=== PATIENT | female | born 1985 | race Caucasian/White ===

== ENCOUNTER 2022-10-28 07:16 | Emergency (ER) | payer OTHER, SELFPAY ==
[2022-10-28 07:21] VITALS: BP 153/94; PULSE 95; RESP 18; TEMP 36.4; O2SAT 99; BMI 39.3
--- NOTE | 2022-10-28 07:42 | CRLHL7_ITS ---
For Patients: As a result of the Cures Act, medical imaging exams and procedure reports are released immediately into your electronic medical record. You may view this report before your referring provider. If you have questions, please contact your health care provider. Indication: Injury Technique: A total of three views of the left knee were acquired. Comparison: None Findings: Bones: Alignment is normal. No fractures or bone lesions. Joint spaces: Unremarkable. Soft tissues: Unremarkable. Impression: Normal plain film examination of the left knee. Dictated by Chucky Glaser MD @ 10/28/2022 9:05:41 AM (Electronically Signed)
--- NOTE | 2022-10-28 07:43 | ED_ITS ---
HPI - General Adult General Time Seen by Provider: 07:43 Date Seen: 10/28/22 Chief complaint: Extremity Pain/Injury, Lower Stated complaint: knees injuries Time Seen by Provider: 10/28/22 07:38 Source: patient Mode of arrival: ambulatory Limitations: no limitations History of Present Illness HPI narrative: Patient is a 37-year-old female felt a twist her left knee has pain on the medial aspect of it. No swelling, she has been able to bear weight. She has no prior knee injury. The patient reports that her right knee popped because she put some much pressure on her left knee and then subsequent her right knee when she injured her left knee. No marked swelling, patient works at [employer]. Has a fairly physical job. No other specific complaints no head neck or back pain or injury. Related Data Previous Rx's Medication Instructions Recorded norgestimate-ethinyl estradiol See Rx Instructions .Route 08/29/22 0.18 mg/0.215mg/0.25mg-35 .COMPLEX #84 tabs mcg(28)tablet (Tri-Sprintec (28)) Allergies Allergy/AdvReac Type Severity Reaction Status Date / Time No Known Drug Allergies Allergy Verified 10/28/22 07:25 Review of Systems Status of ROS: Reports: 6 or more systems reviewed and unremarkable except as noted in History and below PFSH PFS Social History Smoking Status: Never smoker Do you use any of these nicotine containing products: None How often do you have a drink containing alcohol: never AUDIT-C Alcohol total score: 0 Non-prescribed substance use: denies use Exam Narrative: Exam Narrative: Objective left knee shows fairly full range of motion pain with valgus stress consistent with MCL strain, some mild medial joint line tenderness but a little bit of tenderness above and below the joint line and medially as well, no effus ion, negative anterior drawer, nex distal CMS intact. Will get an x-ray of the left knee Const: Vital Signs, click to edit/add: Vital Signs - 24 hr 10/28/22 07:21 Temperature 97.5 F L Pulse Rate [Right Pulse Oximeter] 95 Respiratory Rate 18 Blood Pressure [Ri ght Upper Arm] 153/94 H Pulse Oximetry 99 Oxygen Delivery Me thod Room Air Course Vital Signs Vital signs: Initial Vital Signs Temperature 97.5 F L 10/28/22 07:21 Temperature Source Temporal Artery Scan 10/28/22 07:21 Pulse Rate 95 10/28/22 07:21 Respiratory Rate 18 10/28/22 07:21 Blood Pressure 153/94 H 10/28/22 07:21 Blood Pressure Mean 113 10/28/22 07:21 Blood Pressure Position Sitting 10/28/22 07:21 Pulse Oximetry 99 10/28/22 07:21 Oxygen Delivery Method 10/28/22 07:21 Vital Signs Temperature 97.5 F L 10/28/22 07:21 Pulse Rate 95 10/28/22 07:21 Respiratory Rate 18 10/28/22 07:21 Blood Pressure 153/94 H 10/28/22 07:21 Pulse Oximetry 99 10/28/22 07:21 Oxygen Delivery Method 10/28/22 07:21 Temperature 97.5 F L 10/28/22 07:21 Pulse Rate 95 10/28/22 07:21 Respiratory Rate 18 10/28/22 07:21 Blood Pressure 153/94 H 10/28/22 07:21 Pulse Oximetry 99 10/28/22 07:21 Oxygen Delivery Method 10/28/22 07:21 Medical Decision Making MDM Narrative Medical decision making narrative: Left knee x-ray pending. If this is negative I think a knee immobilizer, off work, ice, Advil for the next few days would be appropriate elevation, and limited weight-bearing, and follow-up with primary care in next 2-3 days. Addendum: The patient's chest knee x-ray is negative, and knee immobilizer, crutches, off work for 2 days, recheck with primary care Advil as needed ice, return to ED as needed Discharge Plan Discharge Clinical Impression: Strain of left knee Patient Disposition: Home, Self-Care Condition: Stable Additional Instructions: Ice to the knee 5-10 minutes 3 to 5 times a day, off work for 2 days, recheck with primary care in 2 days, crutches, Advil 3 tablets 3 times a day for the next 3-5 days, return to ED sooner problems concerns Activity Level: Light activity Activity Detail: Off work x2 days Discharge Diet: Regular Prescriptions: No Action norgestimate-ethinyl estradiol [Tri-Sprintec (28)] 0.18/0.215/0.25 mg-35 mcg (28) tablet See Rx Instructions .ROUTE .COMPLEX Qty: 84 3RF Dose Instruction: TAKE ONE TABLET BY MOUTH ONE TIME DAILY Rx Instructions: TAKE ONE TABLET BY MOUTH ONE TIME DAILY Follow Up/Referrals: Donald Smith MD [Primary Care Provider] - Stand Alone Forms: [employer] Info Instructions
== END 2022-10-28 09:44 | disposition home or self-care (01) ==
LOC: ED 09:10
PROVIDERS: Emergency Provider Family Medicine; PCP Family Medicine
DX: S86.912A Strain of unspecified muscle(s) and tendon(s) at lower leg level, left leg, initial encounter (principal); X50.1XXA Overexertion from prolonged static or awkward postures, initial encounter
CPT/HCPCS: 73562; 99283

== ENCOUNTER 2022-12-02 07:19 | Outpatient (CLI) | payer BC, SELFPAY ==
--- NOTE | 2022-12-02 07:15 | CRLHL7_ITS ---
For Patients: As a result of the Century Cures Act, medical imaging exams and procedure reports are released immediately into your electronic medical record. You may view this report before your referring provider. If you have questions, please contact your health care provider. HISTORY: Left knee pain. Locking. TECHNIQUE: Noncontrast MRI of the left knee. COMPARISON: Radiographs 10/28/2022. FINDINGS: Medial compartment: Medial meniscus: There is a displaced bucket-handle tear of the medial meniscus with the bucket-handle portion of the meniscus displaced laterally to the intercondylar notch. The displaced bucket-handle fragment is noted on coronal STIR image #14 of series 8 for example and also apparent on axial T2 fat-sat #17 of series 4. Articular cartilage: The articular surfaces are smooth without focal articular cartilage defect. - Lateral compartment: Lateral meniscus: The anterior horn and body of the lateral meniscus are intact. The posterior horn of the lateral meniscus more medially appears relatively attenuated which raise the possibility of remote subtle tear. Articular cartilage: There is heterogeneity of the lateral tibial plateau articular cartilage posteriorly. Small areas of subchondral bone marrow edema are noted suggesting that up to grade 4 cartilage fissuring is present. There is also heterogeneity of the posterior central lateral femoral condyle articular cartilage with areas softening or fissuring likely present. - Patellofemoral compartment: The articular surfaces are smooth without focal articular cartilage defect. - Ligaments: The anterior cruciate ligament appears chronically torn. The posterior cruciate ligament is intact. The medial collateral ligament is intact. Lateral collateral complex is intact. - Extensor mechanism: The distal quadriceps tendon and patellar tendon are intact. Medial and lateral patellar restraints are intact. No patellar subluxation or reilly. - Joint space: Quantity of joint fluid is within normal limits. - Bones and soft tissues: There is no acute fracture or avascular necrosis. No popliteal cyst. Popliteus tendon is intact. No posterolateral corner capsular defect appreciated. IMPRESSION: 1. Chronic ACL tear. 2. Displaced bucket-handle tear of the medial meniscus with the bucket-handle portion of the meniscus displaced to the intercondylar notch. 3. Lateral compartment chondromalacia posteriorly (potentially reflecting sequelae of prior chondral injury). 4. Question subtle changes related to a remote tear of the posterior horn of the lateral meniscus closer to the root as that portion of the meniscus appears mildly attenuated. Dictated by Matt Craig MD @ 12/02/2022 3:19:47 PM (Electronically Signed)
--- NOTE | 2022-12-02 08:00 | CRLHL7_ITS ---
For Patients: As a result of the 21st Century Cures Act, medical imaging exams and procedure reports are released immediately into your electronic medical record. You may view this report before your referring provider. If you have questions, please contact your health care provider. HISTORY: Right knee pain and locking. TECHNIQUE: Noncontrast MRI of the right knee. COMPARISON: No prior. FINDINGS: Medial compartment: Medial meniscus: There are sequelae of prior tearing of the posterior horn, body and anterior horn of the medial meniscus with meniscal attenuation. There is a 1 cm meniscal flap associated with the anterior horn of the meniscus as noted on coronal STIR image #12 series 8. That meniscal flap is also apparent on sagittal PD fat-sat image #20 of series 6. Given the extent of meniscal attenuation, this may have previously reflected a displaced bucket-handle tear of the meniscus though there is no bucket-handle fragment contiguous with the anterior and posterior horns of the meniscus currently. Articular cartilage: There is high-grade cartilage wear within the medial compartment. Subchondral bone marrow edema involving the medial tibial plateau medially likely indicates presence of overlying grade 4 full-thickness cartilage abnormality. There is grade 3 chondromalacia of the medial femoral condyle. Mild osteophyte formation is present. - Lateral compartment: Lateral meniscus: Intact. Articular cartilage: Maintained. - Patellofemoral compartment: The articular cartilage is maintained. - Ligaments: The anterior cruciate ligament appears chronically torn. The posterior cruciate ligament is intact. The medial collateral ligament is intact. Lateral collateral complex intact. - Extensor mechanism: The distal quadriceps tendon and patellar tendon are intact. Medial and lateral patellar restraints are intact. No patellar subluxation or reilly. - Joint space: No effusion. - Bones and soft tissues: There is no acute fracture. As above, there is bone marrow edema within the medial tibial plateau in setting of overlying chondromalacia. No significant popliteal cyst. Popliteus tendon is intact. No posterolateral corner capsular defect. IMPRESSION: 1. Chronic ACL tear, right knee. 2. Attenuation of the posterior horn, body and anterior horn of the medial meniscus reflecting sequelae of meniscal tearing. An approximately 1 cm meniscal flap is associated with the anterior horn of the meniscus. Given this appearance, the patient may have previously sustained a displaced bucket-handle tear of the meniscus though no bucket-handle fragment is currently contiguous with the anterior and posterior horns of the meniscus. 3. High-grade medial compartment chondromalacia with subchondral bone marrow edema involving the medial tibial plateau (grade 3/4). Dictated by Matt Craig MD @ 12/02/2022 3:35:42 PM (Electronically Signed)
== END 2022-12-02 07:20 | disposition home or self-care (01) ==
LOC: MRI 07:20
PROVIDERS: PCP Family Medicine; Visit Provider Family Medicine
DX: M25.562 Pain in left knee (principal); M25.561 Pain in right knee; S83.512A Sprain of anterior cruciate ligament of left knee, initial encounter; S83.242A Other tear of medial meniscus, current injury, left knee, initial encounter; M94.262 Chondromalacia, left knee; S83.511A Sprain of anterior cruciate ligament of right knee, initial encounter; S83.241A Other tear of medial meniscus, current injury, right knee, initial encounter; M94.261 Chondromalacia, right knee
CPT/HCPCS: 73721

== ENCOUNTER 2023-02-17 14:00 | Outpatient (RCR) | payer BC, SELFPAY | END 2023-05-29 23:59 | disposition home or self-care (01) | PROVIDERS: PCP Family Medicine; Visit Provider Physician Assistant Surgical | DX: S83.511A Sprain of anterior cruciate ligament of right knee, initial encounter (principal); S83.512A Sprain of anterior cruciate ligament of left knee, initial encounter; M25.561 Pain in right knee; Z51.89 Encounter for other specified aftercare | CPT/HCPCS: 97110; 97161; 97530 ==

== ENCOUNTER 2023-03-10 14:12 | Outpatient (CLI) | payer BC, SELFPAY | END 2023-03-10 14:13 | disposition home or self-care (01) | LOC: LONREF 14:13 | PROVIDERS: PCP Family Medicine; Visit Provider Family Medicine | DX: Z01.818 Encounter for other preprocedural examination (principal) | CPT/HCPCS: 80048 ==

== ENCOUNTER 2023-07-18 13:44 | Outpatient (CLI) | payer BC, SELFPAY | END 2023-07-18 13:45 | disposition home or self-care (01) | PROVIDERS: PCP Family Medicine; Visit Provider Family Medicine | DX: Z00.00 Encounter for general adult medical examination without abnormal findings (principal); I10 Essential (primary) hypertension; E66.9 Obesity, unspecified; Z13.6 Encounter for screening for cardiovascular disorders; R10.11 Right upper quadrant pain | CPT/HCPCS: 80061; 80076; 84443 ==

== ENCOUNTER 2023-07-25 14:35 | Outpatient (CLI) | payer BC, SELFPAY ==
--- NOTE | 2023-07-25 15:00 | CRLHL7_ITS ---
For Patients: As a result of the Cures Act, medical imaging exams and procedure reports are released immediately into your electronic medical record. You may view this report before your referring provider. If you have questions, please contact your health care provider. INDICATION: Right upper quadrant pain. COMPARISON: None available. TECHNIQUE: Ultrasound examination of the right upper quadrant was performed. FINDINGS: There are several echogenic, nonshadowing, nonmobile foci located along the gallbladder wall consistent with multiple small polyps. There is no sign of cholelithiasis or sludge. The gallbladder wall is not thickened and there is no pericholecystic fluid. A sonographic Jaquez sign is not present, with no pain over the gallbladder during ultrasound examination. The common bile duct is normal in caliber at 5 mm. The pancreatic head and body were examined, and these are normal in appearance. The abdominal aorta and visualized portions of the inferior vena cava are normal in appearance. The liver shows no sign of mass or contour abnormality, and there is no sign of ascites. The right kidney is unremarkable. IMPRESSION: Small gallbladder polyps. No sign of cholelithiasis or acute cholecystitis. No sign of biliary ductal dilatation. Dictated by Ramírez Lorenz MD @ 07/26/2023 8:50:50 AM (Electronically Signed)
== END 2023-07-25 14:36 | disposition home or self-care (01) ==
LOC: US 14:35
PROVIDERS: PCP Family Medicine; Visit Provider Family Medicine
DX: R10.11 Right upper quadrant pain (principal); K82.4 Cholesterolosis of gallbladder
CPT/HCPCS: 76705

== ENCOUNTER 2023-08-05 08:28 | Outpatient (CLI) | payer BC, SELFPAY ==
--- NOTE | 2023-08-05 09:00 | CRLHL7_ITS ---
For Patients: As a result of the Century Cures Act, medical imaging exams and procedure reports are released immediately into your electronic medical record. You may view this report before your referring provider. If you have questions, please contact your health care provider. INDICATION: Right upper quadrant pain TECHNIQUE: 5.4 mCi [id number] was injected intravenously. Images of the liver, gallbladder and abdomen were obtained for 50 minutes. 2.05 mcg Kinevac IV was then administered and imaging continued for an additional 23 minutes. COMPARISON: Ultrasound 07/25/2023 FINDINGS: There is good uptake of activity by the hepatocytes. There is visualization of the biliary tree, gallbladder and small bowel. In response to CCK administration, there is a normal gallbladder ejection fraction of 84 percent. IMPRESSION: 1. Normal study. There is no evidence of acute or chronic cholecystitis. 2. Normal gallbladder ejection fraction of 84 percent. Dictated by Aldo Auguste MD @ 08/05/2023 12:53:12 PM (Electronically Signed)
== END 2023-08-05 08:29 | disposition home or self-care (01) ==
LOC: NM 08:29
PROVIDERS: PCP Family Medicine; Visit Provider Family Medicine
DX: R10.11 Right upper quadrant pain (principal)
CPT/HCPCS: 78227; A9537; J2805

== ENCOUNTER 2023-08-12 09:45 | Outpatient (RCR) | payer BC, SELFPAY | END 2023-08-12 09:57 | disposition home or self-care (01) | PROVIDERS: PCP Family Medicine; Visit Provider Orthopaedic Surgery Sports Medicine | DX: S83.512D Sprain of anterior cruciate ligament of left knee, subsequent encounter (principal); Z51.89 Encounter for other specified aftercare | CPT/HCPCS: 97110; 97112; 97116; 97140; 97161; 97530; J2250; J3010 ==

== ENCOUNTER 2023-11-17 16:24 | Emergency (ER) | payer BC, SELFPAY ==
[2023-11-17 16:52] VITALS: BP 150/99; PULSE 107; RESP 26; TEMP 36.6; O2SAT 98; BMI 36.9
--- NOTE | 2023-11-17 17:01 | CRLHL7_ITS ---
For Patients: As a result of the Century Cures Act, medical imaging exams and procedure reports are released immediately into your electronic medical record. You may view this report before your referring provider. If you have questions, please contact your health care provider. INDICATION: Right upper quadrant abdominal pain. COMPARISON: 07/25/2023. FINDINGS: Right upper quadrant abdominal ultrasound was performed. The liver is normal echotexture without any focal lesions. There is sludge and stones in the gallbladder. The gallbladder wall is thickened measuring 0.4 cm. The common bile duct is prominent measuring 0.7 cm. There is a positive sonographic Jaquez`s sign. The visualized portion of the pancreas is unremarkable. The right kidney measures 11.7 x 4.6 x 5.6 cm with a cortical thickness of 1.5 cm and is unremarkable. The inferior vena cava is unremarkable. IMPRESSION: Sludge and stones in the gallbladder with a thickened gallbladder wall consistent with a cholecystitis. Borderline dilated common bile duct measuring 0.7 cm. Dictated by Hussain Renae MD @ 11/17/2023 7:53:35 PM (Electronically Signed)
[2023-11-17 17:12] LABS: Lactate* 0.9 mmol/L (0.5-1.9)
[2023-11-17] MEDS: MORPHINE 2 MG/ML inj 4 MG IVP (17:12)
[2023-11-17] MEDS: ONDANSETRON 2 MG/ML inj 4 MG IVP (17:14)
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
--- OUTSIDE RECORDS SUMMARY | 2023-11-17 17:14 | XMS_ITS | Clinical Summary ---
Author Name Unknown Organization [employer] [facility] Address [place], [place] [address] Care Team Providers Care Mutual Fund Analyst Name Role Phone Pcp, No Primary Care Provider Unavailabl e Allergies No known active allergies Medications Medication Sig Dispensed Refills Start Date End Date Status TRI-PREVIFEM 0.18/0.215/0.25 mg-35 mcg (28) tablet 2 03/21/2016 Active durable medical equipment (DME)Indications:Plan tar fasciitis [id number] Plantar Fasciitis Night Splint, M 1 Each 0 04/24/2021 Active Family History Medical History Relation Name Comments Hypertension Father Hypertension Mother Relation Name Status Comments Father Alive Mother Alive Social History Tobacco Use Types Packs/Day Years Used Date Smoking Tobacco: Every Day Smokeless Tobacco: Never Tobacco Cessation:Ready to Q uit: No; Counseling Given: Yes Comments:pack 3-4 days Alcohol Use Standard Drinks/Week Comments No 0 (1 standard drink = 0.6 oz pur e alcohol) Sex and Gender Information Value Date Recorded Sex Assigned at Not on file Gender Identity Not on file Sexual Orientation Not on file Obstetrics History Last Filed Vital Signs Vital Sign Reading Time Taken Comments Blood Pressure 100/60 05/07/2019 8:28 AM CDT Pulse 87 08/16/2021 2:56 PM CDT Temperature 36.7 ??C (98 ??F) 07/14/2018 2:36 AM CDT Respiratory Rate 18 07/14/2018 2:36 AM CDT Oxygen Saturation 97% 08/16/2021 2:56 PM CDT Inhaled Oxygen Concentration - - Weight 109.8 kg (242 lb) 08/16/2021 2:56 PM CDT Height 162.6 cm (5' 4) 05/07/2019 8:28 AM CDT Body Mass Index 41.54 05/07/2019 8:28 AM CDT Plan of Treatment Health Maintenance Due Date Last Done Comments COVID-19 vaccine series (#1) 1985 Tdap 1996 HIV for age 15-65 2000 Hepatitis C screening for age 18-79 2003 Tetanus booster 2005 Depression screening for age 12+ 05/06/2018 05/06/2017, 2016 BMI (ht and wt on same day) for age 18+ 05/07/2020 05/07/2019, 04/21/2018, 05/06/2017, Additional history exists Pap test for age 21-65 11/23/2022 11/23/2019, 2019 Influenza for age 9-49 07/11/2023 Pneumococcal series for age 6-64 Aged Out No longer eligible based on patient's age to complete this topic Care Teams Mutual Fund Analyst Relationship Specialty Start Date End Date Pcp, No . PCP - General 05/16/14
--- OUTSIDE RECORDS SUMMARY | 2023-11-17 17:14 | XMS_ITS | Clinical Summary ---
Author Name Unknown Organization [facility] Address [address] [place] [address] Care Team Providers Care Greenskeeper Supervisor Name Role Phone Elsewhere, Pcp Primary Care Provider Unavailabl e Source Comments Patient records contain information from all sites at [facility]. For routine questions regarding patient records, call [phone] during business hours, M-F 8:00 AM - 5:00 PM Central Time. Record requests for emergency care only can be directed to [phone] at any time.[facility] Allergies No known active allergies Medications No known medications Active Problems Problem Noted Date Diagnosed Date Management Contraception Prescription 08/07/2018 Herpes Genitalis 08/07/2018 Immunizations Name Administration Dates Next Due Influenza, Seasonal, Injectable 09/18/2010 Influenza, Unspecified 08/24/2014 MMR 02/14/1998 Td (Adult), adsorbed 09/22/2007,02/14/1998 Tdap 03/02/2015 Social History Tobacco Use Types Packs/Day Years [...] on file Sexual Orientation Not on file Last Filed Vital Signs Vital Sign Reading [...] Mass Index 39.01 02/04/2023 7:17 AM CDT Plan of Treatment Health Maintenance Due Date Last Done Comments HIV Screening 1985 Hepatitis B Vaccines (1 of 3 - 3-dose series) 1985 Hepatitis C Screening 1985 Lipid (Cholesterol) Screening 1985 Tobacco Cessation counseling 1985 COVID-19 Vaccine (#1) 1985 Pneumococcal vaccine (0-64 years) (1 of 2 - PCV) 1991 Depression Screening (Annual PHQ-2) 11/10/2022 Cervical Cancer Screening 11/23/20222019, 12/01/2014 Influenza Vaccine (#1) 2023 4, 09/18/2010 DTaP,Tdap,and Td Vaccines (3 - Td or Tdap) 03/02/2025 03/02/2015, 09/22/2007, 02/14/1998 HPV Vaccines Aged Out No longer eligi ble based on patient's age to complete this topic Care Teams Greenskeeper Supervisor Relationship Specialty Start Date End Date Elsewhere, Pcp PCP - General 02/08/22
--- OUTSIDE RECORDS SUMMARY | 2023-11-17 17:14 | XMS_ITS | Referral Summary ---
Author Name Unknown Organization [facility] Address [address] [place] [address] Care Team Providers Care Driver Lifter Of Sanitation Truck Name Role Phone Elsewhere, Pcp Primary Care Provider Unavailabl e Source Comments Patient records contain information from all sites at [facility]. For routine questions regarding patient records, call [phone] during business hours, M-F 8:00 AM - 5:00 PM Central Time. Record requests for emergency care only can be directed to [phone] at any time.[facility] Allergies No known active allergies Medications No [...] 02/04/2023 7:17 AM CDT Plan of Treatment Not on file Care Teams Driver Lifter Of Sanitation Truck Relationship Specialty Start Date End Date Elsewhere, Pcp PCP - General 02/08/22
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
--- OUTSIDE RECORDS SUMMARY | 2023-11-17 17:14 | XMS_ITS ---
Author Name Unknown Organization [facility] Address [address] [place] [address] Care Team Providers Care Steel Plate Caulker Name Role Phone Unavailable Unavailable Unavailable Surgery Details Not on file Complications Check Surgery Details section. Procedure Estimated Blood Loss Check Surgery Details section. Procedure Findings Check Surgery Details section. Procedure Specimens Taken Check Surgery Details section.
[2023-11-17 17:15] LABS: Basophils Percent Auto 0.2 % (0.0-3.0); Eosinophils Percent Auto 1.7 % (0.0-7.0); Hematocrit 45.1 % (33.0-51.0); Immature Granulocytes Pct Auto 0.1 %; Lymphocytes Percent Auto 28.6 % (20-44); Mean Corpuscular HGB Conc 33 gm/dL (32-36); Mean Corpuscular Hemoglobin 31 pg (26-34); Mean Corpuscular Volume 95 fL (80-100); Monocytes Percent Auto 5.2 % (0.0-11.0); Neutrophils Percent Auto 64.2 % (42.0-72.0); Platelet Count* 364 K/uL (140-440); RDW Coefficient of Variation % 12.5 % (11.5-15.5); Red Blood Count 4.77 m/uL (4.00-5.20); White Blood Count* 12.69 K/uL (4.50-11.00)
[2023-11-17] MEDS: 0.9 % SODIUM CHLORIDE 1000 ml 1,000 ML IV (17:15)
[2023-11-17 17:21] LABS: Slide Review Reflex No
[2023-11-17 17:32] LABS: Albumin* 4.3 g/dL (3.3-5.0); Chloride* 109 mmol/L (96-114); Sodium* 139 mmol/L (135-149)
--- NOTE | 2023-11-17 17:33 | ED.GENADULT ---
HPI - General Adult General Chief complaint: Abdominal Pain Stated complaint: gallbladder pain, cant really walk Time Seen by Provider: 11/17/23 16:57 Source: patient Mode of arrival: ambulatory Limitations: no limitations History of Present Illness HPI narrative: 38-year-old female presenting today with right upper quadrant abdominal pain. She states that it started about 2 hours ago. She states that it is a 8/10. For lunch patient states that she had a very ?crappy lunch?, she did not want to tell me what she actually ate. Patient tells me that she has had gallbladder attacks in the past and this feels more severe than that. She denies a history of gallstones. States that her gallbladder was malfunctioning in the past. She denies fevers or chills. She feels nauseated but has not vomited. She denies diarrhea or urinary symptoms. She had an attack last night also, but it resolved and was not as severe. Breast milk is significant for hypertension and anxiety. Patient takes lisinopril. Past intra-abdominal surgical history significant for appendectomy. Related Data Previous Rx's Medication Instructions Recorded lisinopril 20 mg tablet 20 mg PO QDAY #30 tabs 07/18/23 Allergies Allergy/AdvReac Type Severity Reaction Status Date / Time No Known Drug Allergies Allergy Verified 08/29/23 13:33 Review of Systems Status of ROS: Reports: 10 or more systems reviewed and unremarkable except as noted in History and below [facility] Medical History History of paroxysmal supraventricular tachycardia ?Z86.79 - Personal history of other diseases of the circulatory system (ICD-10) Surgical History H/O arthroscopy of left knee (03/24/23) ?Z98.890 - Other specified postprocedural states (ICD-10) History of appendectomy ?Z90.49 - Acquired absence of other specified parts of digestive tract (ICD-10) Family History Other ASCVD (arteriosclerotic cardiovascular disease) Diabetes Social History What is your current living situation?: I presently have a place to live Problems where you live: no known problems and declined to answer In the past 12 months, utilities in danger of being shut off: no In past 12 months, lack of transportation kept you from medical appts, meetings, work, or getting things needed for daily living: no In the past 12 mos, have been you worried that your food would run out before you had money to buy more?: never true In the past 12 mos, the food you bought just didn't last and you didn't have money to buy more?: never true Smoking Status: Current every day smoker Do you use any of these nicotine containing products: None How often do you have a drink containing alcohol: 2-4 times a month How many standard drinks containing alcohol do you have on a typical day: 1 or 2 How often do you have six or more drinks on one occasion: Never AUDIT-C Alcohol total score: 2 Non-prescribed substance use: denies use How often does anyone, including family, friends and others, physically hurt you: never How often does anyone, including family, friends and others, insult or talk down to you: sometimes How often does anyone, including family, friends and others, threaten you with harm: never How often does anyone, including family, friends and others, scream or curse at you: sometimes Little interest or pleasure in doing things: more than half the days Feeling down, depressed, or hopeless: not at all Are you using contraception or practicing any form of control: No Exam Narrative: Exam Narrative: Overweight, well-developed patient, appears very uncomfortable. Alert and oriented. Answers questions appropriately. Mood and affect are appropriate. Thoughts are goal oriented and rational. No tangential or magical thinking noted. Patient speaks in full sentences without needing to catch her breath. HEENT: Normocephalic atraumatic. Pupils are equally round reactive to light. Extraocular muscles are intact. Conjunctivae are moist without any icterus noted. Moist mucous membranes. Posterior pharynx is normal. Neck is soft without any lymphadenopathy or thyromegaly. No masses are appreciated. Cardiovascular: Heart is regular rate and rhythm S1 and S2 are present without any murmurs. Lungs: Clear to auscultation bilaterally no wheezes rhonchi or rales are appreciated. Patient takes deep breaths without any discomfort. Abdomen: Soft and nondistended with hypoactive bowel sounds. She does have right upper quadrant tenderness, positive Jaquez sign. Extremities: Bilateral lower extremities are without edema. Normal DP and PT pulses. Skin: Well perfused without any obvious rashes. Const: Vital Signs, click to edit/add: Vital Signs - 24 hr 11/17/23 16:52 11/17/23 18:51 Temperature 97.8 F Pulse Rate 62 Pulse Rate [Pulse Oximeter] 107 H Respiratory Rate 26 H 14 Blood Pressure [Ri ght Upper Arm] 150/99 H Pulse Oximetry 98 100 Oxygen Delivery Me thod Room Air Course Course ED Course: IV is established and patient started on Zofran, fluids and morphine. Morphine help the pain temporarily the pain did come back. She was given hydrocodone, her pain did resolve. Lab work was unremarkable. Right upper quadrant ultrasound showing stones and sludge in the gallbladder. Vital Signs Vital signs: Initial Vital Signs Temperature 97.8 F 11/17/23 16:52 Temperature Source Temporal Artery Scan 11/17/23 16:52 Pulse Rate 107 H 11/17/23 16:52 Pulse Rhythm Regular 11/17/23 16:52 Respiratory Rate 26 H 11/17/23 16:52 Blood Pressure 150/99 H 11/17/23 16:52 Blood Pressure Mean 116 H 11/17/23 16:52 Blood Pressure Position Sitting 11/17/23 16:52 Pulse Oximetry 98 11/17/23 16:52 Oxygen Delivery Method Room Air 11/17/23 16:52 Vital Signs Temperature 97.8 F 11/17/23 16:52 Pulse Rate 107 H 11/17/23 16:52 Respiratory Rate 26 H 11/17/23 16:52 Blood Pressure 150/99 H 11/17/23 16:52 Pulse Oximetry 98 11/17/23 16:52 Oxygen Delivery Method Room Air 11/17/23 16:52 Temperature 97.8 F 11/17/23 16:52 Pulse Rate 62 11/17/23 18:51 Respiratory Rate 14 11/17/23 18:51 Blood Pressure 150/99 H 11/17/23 16:52 Pulse Oximetry 100 11/17/23 18:51 Oxygen Delivery Method Room Air 11/17/23 16:52 Medications Administered Medications: Generic Name Dose Route Start Last Admin Trade Name Freq PRN Reason Stop Dose Admin Hydrocodone Bitart/Acetaminophen 2 tab 11/17/23 18:19 11/17/23 18:25 Hydrocodone-Acetamin 5-325 Mg 1 Tab PO 11/17/23 18:20 2 tab ONCE ONE Administration Discontinued Medications Generic Name Dose Route Start Last Admin Trade Name Lyn PRN Reason Stop Dose Admin Sodium Chloride 1,000 mls @ 1,000 mls/hr 11/17/23 17:15 11/17/23 19:02 0.9 % Sodium Chloride 1000 Ml IV 11/17/23 18:14 Infused .Q1H LILLIE Infusion Morphine Sulfate 4 mg 11/17/23 17:01 11/17/23 17:12 Morphine 2 Mg/Ml Inj IVP 11/17/23 17:02 4 mg ONCE ONE Administration Ondansetron HCl 4 mg 11/17/23 17:01 11/17/23 17:14 Ondansetron 2 Mg/Ml Inj IVP 11/17/23 17:02 4 mg ONCE ONE Administration Medical Decision Making MDM Narrative Medical decision making narrative: 38-year-old female with cholelithiasis, presenting with pain now resolved. The patient will be discharged home with hydrocodone to take as needed and she will follow up with General surgery for surgical management. Medical Records Medical records reviewed: Yes I reviewed the patient's medical records Lab Data Lab results reviewed: Yes I reviewed the patient's lab results Labs: Lab Results 11/17/23 11/17/23 Range/Units 17:04 19:03 WBC 12.69 H (4.50-11.00) K/uL RBC 4.77 (4.00-5.20) m/uL Hgb 15.0 (12.0-16.0) gm/dL Hct 45.1 (33.0-51.0) % MCV 95 (80-100) fL MCH 31 (26-34) pg MCHC 33 (32-36) gm/dL RDW Coeff of Jaret 12.5 (11.5-15.5) % Plt Count 364 (140-440) K/uL Neut % (Auto) 64.2 (42.0-72.0) % Lymph % (Auto) 28.6 (20-44) % [place] % (Auto) 5.2 (0.0-11.0) % Eos % (Auto) 1.7 (0.0-7.0) % Baso % (Auto) 0.2 (0.0-3.0) % Neut # (Auto) 8.10 H (1.7-7.0) K/uL Lymph # (Auto) 3.60 H (0.90-2.90) K/uL [place] # (Auto) 0.70 (0.00-0.90) K/UL Eos # (Auto) 0.20 (0.00-0.50) K/uL Baso # (Auto) 0.00 (0.00-0.30) K/uL Abs Immat Gran (auto) 0.00 (0.00-0.30) K/uL Imm/Tot Granulo (auto) 0.1 % Sodium 139 (135-149) mmol/L Potassium 4.0 (3.6-5.1) mmol/L Chloride 109 (96-114) mmol/L Carbon Dioxide 22 (20-32) mmol/L Anion Gap 8 (7-15) mEq/L BUN 14 (5-24) mg/dL Creatinine 0.7 (0.5-1.5) mg/dL Estimated Creat Clear 94.10 Estimated GFR 113 ml/min Glucose 104 (60-115) mg/dL Lactate 0.9 (0.5-1.9) mmol/L Calcium 9.0 (8.4-10.6) mg/dL Total Bilirubin 0.3 (0.1-1.5) mg/dL Direct Bilirubin 0.0 (0.0-0.5) mg/dL AST 20 (12-35) U/L ALT 22 (4-35) U/L Alkaline Phosphatase 63 (40-150) U/L C-Reactive Protein 0.5 (0.5-1.0) mg/dL Total Protein 7.2 (6.0-8.3) g/dL Albumin 4.3 (3.3-5.0) g/dL Lipase 127 (23-300) U/L Urine HCG, Qual Negative (Negative) Imaging Data US - abdomen: Attestation: I have reviewed the pertinent imaging results. Radiologist's impression: FINDINGS: Right upper quadrant abdominal ultrasound was performed. The liver is normal echotexture without any focal lesions. There is sludge and stones in the gallbladder. The gallbladder wall is thickened measuring 0.4 cm. The common bile duct is prominent measuring 0.7 cm. There is a positive sonographic Jaquez`s sign. The visualized portion of the pancreas is unremarkable. The right kidney measures 11.7 x 4.6 x 5.6 cm with a cortical thickness of 1.5 cm and is unremarkable. The inferior vena cava is unremarkable. IMPRESSION: Sludge and stones in the gallbladder with a thickened gallbladder wall consistent with a cholecystitis. Borderline dilated common bile duct measuring 0.7 cm. Discharge Plan Discharge Clinical Impression: Cholelithiasis Patient Disposition: Home, Self-Care Condition: Improved Additional Instructions: Use pain medications as needed. You will need to follow-up with general surgeon for surgical removal of the gallbladder. Phone number will be provided to you to call the clinic in the morning. If you develop a fever or vomiting, you should return to the ER. Prescription sent to [facility]. Prescriptions: No Action lisinopril 20 mg tablet 20 mg PO QDAY Qty: 30 5RF Follow Up/Referrals: Donald Smith MD [Primary Care Provider] - Stand Alone Forms: [employer] Info Instructions
[2023-11-17 17:35] LABS: Anion Gap 8 mEq/L (7-15); Carbon Dioxide* 22 mmol/L (20-32); Creatinine* 0.7 mg/dL (0.5-1.5); Estimated Glomerular Filt Rate 113 ml/min
[2023-11-17 17:36] LABS: Alanine Aminotransferase* 22 U/L (4-35); Alkaline Phosphatase* 63 U/L (40-150); Aspartate Amino Transferase* 20 U/L (12-35); Bilirubin Total* 0.3 mg/dL (0.1-1.5); Blood Urea Nitrogen* 14 mg/dL (5-24); Glucose* 104 mg/dL (60-115); Lipase* 127 U/L (23-300); Total Protein* 7.2 g/dL (6.0-8.3)
[2023-11-17 17:39] LABS: C Reactive Protein* 0.5 mg/dL (0.5-1.0)
[2023-11-17] MEDS: HYDROCODONE-ACETAMIN 5-325 MG 1 TAB 2 TAB PO (18:25)
[2023-11-17 18:51] VITALS: PULSE 62; RESP 14; O2SAT 100
[2023-11-17 19:20] LABS: Ur HCG Qualitative* Negative (Negative)
== END 2023-11-17 20:16 | disposition home or self-care (01) ==
PROVIDERS: Emergency Provider Family Medicine; PCP Family Medicine
DX: K80.20 Calculus of gallbladder without cholecystitis without obstruction (principal)
CPT/HCPCS: 36415; 76705; 80048; 80076; 81025; 83605; 83690; 85025; 86140; 96361; 96374; 96375; 99284; A9270; J2270; J2405; J7030

== ENCOUNTER 2023-12-01 08:54 | Day surgery (SDC) | payer BC, SELFPAY ==
[2023-12-01] VITALS (13 sets, daily range): BP systolic 120–149; BP diastolic 62–96; PULSE 60–80; RESP 14–16; TEMP 36.3–37.1; O2SAT 96–99; BMI 37.4
--- OUTSIDE RECORDS SUMMARY | 2023-12-01 08:56 | XMS_ITS ---
Author Name Unknown Organization [facility] Address [address] [place] [address] Care Team Providers Care Stencil Typist Name Role Phone Unavailable Unavailable Unavailable Surgery Details Not on file Complications Check Surgery Details section. Procedure Estimated Blood Loss Check Surgery Details section. Procedure Findings Check Surgery Details section. Procedure Specimens Taken Check Surgery Details section.
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
--- OUTSIDE RECORDS SUMMARY | 2023-12-01 08:56 | XMS_ITS | Clinical Summary ---
Author Name Unknown Organization [facility] Address [place], [place] [address] Care Team Providers Care Asphalt Engineer Name Role Phone Pcp, No Primary Care Provider Unavailabl e Allergies No known active allergies Medications Medication Sig Dispensed Refills Start Date End Date Status TRI-PREVIFEM 0.18/0.215/0.25 mg-35 mcg (28) tablet 2 03/21/2016 Active durable medical equipment (DME)Indications:Plan tar fasciitis [id number] Plantar Fasciitis Night Splint, M 1 Each [...] age to complete this topic Care Teams Asphalt Engineer Relationship Specialty Start Date End Date Pcp, No . PCP - General 05/16/14
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
--- OUTSIDE RECORDS SUMMARY | 2023-12-01 08:56 | XMS_ITS | Clinical Summary ---
Author Name Unknown Organization [facility] Address [address] [place] [address] Care Team Providers Care Senior Asic Design Engineer Name Role Phone Elsewhere, Pcp Primary Care Provider Unavailabl e Source Comments Patient records contain information from all sites at [facility]. For routine questions regarding patient records, call [phone] during business hours, M-F 8:00 AM - 5:00 PM Central Time. Record requests for emergency care only can be directed to [phone] at any time.[facility] Allergies No known active allergies Medications [...] years) (1 of 2 - PCV) 1991 Cervical Cancer Screening 11/23/20222019, 12/01/2014 Influenza Vaccine (#1) 2023 4, 09/18/2010 Depression Screening (Annual PHQ-2) 11/10/2023 DTaP,Tdap,and Td Vaccines (3 - Td or Tdap) 03/02/2025 03/02/2015, 09/22/2007, 02/14/1998 HPV Vaccines Aged Out No longer eligi ble based on patient's age to complete this topic Care Teams Senior Asic Design Engineer Relationship Specialty Start Date End Date Elsewhere, Pcp PCP - General 02/08/22
--- OUTSIDE RECORDS SUMMARY | 2023-12-01 08:56 | XMS_ITS | Referral Summary ---
Author Name Unknown Organization [facility] Address [address] [place] [address] Care Team Providers Care Acoustic Warfare Analyst Name Role Phone Elsewhere, Pcp Primary Care Provider Unavailabl e Source Comments Patient records contain information from all sites at [facility]. For routine questions regarding patient records, call [phone] during business hours, M-F 8:00 AM - 5:00 PM Central Time. Record requests for emergency care only can be directed to [phone] at any time.[facility] Allergies No known active allergies Medications No [...] of Treatment Not on file Care Teams Acoustic Warfare Analyst Relationship Specialty Start Date End Date Elsewhere, Pcp PCP - General 02/08/22
[2023-12-01] MEDS: LACTATED RINGERS 1000 ML 1,000 ML 100 ML IV ×2 (09:00→11:05)
[2023-12-01 09:17] LABS: Ur HCG Qualitative* Negative (Negative)
[2023-12-01] MEDS: SODIUM CHLORIDE 0.9 % (FLUSH) 10 ML SYRINGE IVF (09:20)
--- NOTE | 2023-12-01 09:30 | P.GSOP_ITS ---
Operative Note Date of procedure: 12/01/23 Pre-op diagnosis: 1. Biliary colic. 2. Possible choledocholithiasis. Post-op diagnosis: Same Type of Procedure: 1. Laparoscopic cholecystectomy with intraoperative cholangiogram. Indications: 38-year-old female was seen in clinic for evaluation of recurrent episodes of right upper quadrant pain. She initially noticed frequent repeated episodes of severe pain in June of 2023 but might have had similar episodes for years. Usually her pain started after eating fatty food and radiated towards epigastrium. Her painful episodes lasted anywhere from 10 minutes to 5 hours and sometimes were associated with vomiting. During her last episodes she was seen in the emergency room and was found to have normal liver function tests and lipase. Her WBC was elevated at 12. A gallbladder ultrasound was obtained that showed cholelithiasis with sludge, the gallbladder wall was 4 mm thick, and her common bile duct was measured at 7 mm. On clinical exam she had no tenderness to palpation in the epigastrium or right upper quadrant with negative Jaquez sign. Given patient's clinical history and her physical exam, biliary colic with possible choledocholithiasis was suspected, and laparoscopic cholecystectomy with intraoperative cholangiogram was recommended. The procedure was discussed in detail. The risks associated procedure including infection, bleeding, injury to the common bile duct, potential for future procedures, an injury to intra-abdominal organs were all discussed with the patient, and she agreed to proceed. Procedure Description: After discussing the risks and benefits of the procedure, the patient signed informed consent.? The operative site was marked and the patient was brought to the operating room and placed on the operating table in supine position.? Care was taken to pad the patient's pressure points.?? The patient was then intubated by anesthesia.?? The operative site was then prepped and draped in the usual sterile fashion.? A time-out was then performed. A 5-mm laparoscopy port was placed in the left upper quadrant guided by a 5-mm laparoscope placed into a translucent trochar.~ Passage through the layers of the abdominal wall was visualized with the laparoscope.~ A pneumoperitoneum was established. A 0-degree 5-mm laparoscope was advanced into the abdomen. The abdomen was briefly surveyed, and no adhesions were noted. A 10-mm port were placed infraumbilically and two more 5 mm ports were placed on the right under direct visualization by laparoscope. The camera was then changed to 10 mm 30- degree scope and placed into the abdomen through the 10 mm port. The left upper quadrant port entrance was examined and no injury to intra-abdominal organs was identified. The gallbladder was identified, the fundus grasped and retracted cephalad. The infundibulum was grasped and retracted laterally, exposing the peritoneum overlying the triangle of Calot. This was then divided and exposed in a blunt fashion and with hook cautery. Common bile duct was not identified but care was taken not to injure it. The cystic duct was clearly identified and bluntly dissected circumferentially. The cystic duct was small in caliber. Small veins were noted medial to the cystic duct and those were divided with hook cautery. If they were more prominent, 5 mm clips were placed on the proximal vein and it was then divided with hook cautery. Cystic artery was identified posteriorly and tissues around it were dissected off. This was clipped with two 5 mm clips on the patient's side and a single clip on the specimen side and divided with scissors. The cystic duct was clearly going into the gallbladder. I then proceeded with intraoperative cholangiogram. The cystic duct was clipped with a 5 mm clip on the gallbladder side and a small ductotomy was made with laparoscopic Metzenbaum scissors. An additional 5 mm port was placed under direct visualization in the right upper quadrant. A blue introducer from an Arrow cholangiogram kit was placed through the port and a cholangiocatheter was placed through the introducer and directed into the cystic duct. The catheter was then clipped with a single 5 mm clip at the ductotomy site to secure it in place. Fluoroscopy was brought onto the field and Optiray 300 contrast dye was injected through the cholangiocatheter. The biliary tree was visualized and the contrast appeared to be emptying into the small bowel. There was good filling of the right and left hepatic tree. At this time 5 mm clip on the cystic duct and cholangiocatheter were removed and the cholangiocatheter was removed from the cystic duct. The duct was then clipped with two 5 mm clips on the patient's side just below the ductotomy. The cystic duct was then divided at the level of ductotomy. The gallbladder was dissected from the liver bed in retrograde fashion using hookcautery. The gallbladder was placed into an Endo-Catch bag and removed through the infraumbilical incision. Surgical site was examined for bleeding. Some bleeding was noted from the liver bed, and that was controlled with hook cautery. No further bleeding was seen in the surgical field. The fascia of the infraumbilical incision was then closed with 0-0 vicryl using Nael Josette needle under direct visualization. Pneumoperitoneum was completely reduced after viewing removal of the trocars under direct vision. The skin was then closed with 4-0 monocryl and steristrips were applied. Instrument, sponge, and needle counts were correct at closure and at the conclusion of the case. The patient was transferred to PACU in stable condition. Findings: No evidence of acute cholecystitis. No common bile duct stone. Anesthesia: GETA Surgeon: Sunday Fontenot MD Estimated blood loss (mL): 5 Specimen: Gallbladder Condition: stable Disposition: PACU
--- NOTE | 2023-12-01 09:30 | W.PM.H&PU ---
History & Physical Update History & Physical Update H&P Reviewed and patient assessed: No changes noted
[2023-12-01] MEDS: CEFAZOLIN 2 GM INJ IVP (10:00)
--- NOTE | 2023-12-01 10:15 | CRLHL7_ITS ---
For Patients: As a result of the Century Cures Act, medical imaging exams and procedure reports are released immediately into your electronic medical record. You may view this report before your referring provider. If you have questions, please contact your health care provider. INDICATION : Laparoscopic cholecystectomy. TECHNIQUE : Intraoperative cholangiogram. Contrast injected via gallbladder neck and cystic duct. FINDINGS : Fluoroscopy time was 43.2 seconds. One image was obtained. IMPRESSION : Normal caliber intra and extrahepatic ducts. No filling defects. Contrast seen within the duodenum. Normal intraoperative cholangiogram. Dictated by Aldo Auguste MD @ 12/01/2023 11:12:36 AM (Electronically Signed)
[2023-12-01] MEDS: iopamidoL 50 ML VIAL INJECTION (10:36)
[2023-12-01] MEDS: 0.9% SODIUM CHL 50 ML VIAL INJECTION (10:36)
[2023-12-01] MEDS: BUPIVACAINE 0.25% 30 ML INJECTION (11:00)
[2023-12-01] MEDS: fentaNYL 100 MCG/2 ML inj 50 MCG IVP ×3 (11:10→11:35)
--- NOTE | 2023-12-01 11:13 | W.ANESCHARGE ---
Anesthesia Charges Start Date/Time Anesthesia Start Date: 12/01/23 Anesthesia Start Time: 09:49 Stop Date/Time Anesthesia Stop Date: 12/01/23 Anesthesia Stop Time: 11:12
--- NOTE | 2023-12-01 11:46 | W.ANESCHARGE ---
Anesthesia Charges Start Date/Time Anesthesia Start Date: 12/01/23 Anesthesia Start Time: 09:49 Stop Date/Time Anesthesia Stop Date: 12/01/23 Anesthesia Stop Time: 11:12
[2023-12-01] MEDS: HYDROCODONE-ACETAMIN 5-325 MG 1 TAB PO (12:34)
== END 2023-12-01 13:01 | disposition home or self-care (01) ==
PROVIDERS: PCP Family Medicine; Visit Provider Surgery
PROC: 0FT44ZZ Resection of Gallbladder, Percutaneous Endoscopic Approach (ICD-10-PCS; CPT 47563; principal; 2023-12-01 10:15)
DX: K80.10 Calculus of gallbladder with chronic cholecystitis without obstruction (principal)
CPT/HCPCS: 47563; 00790; 74300; 76000; 81025; 88304; A9270; J0665; J0690; J1100; J1170; J1885; J2250; J2405; J2704; J2710; J3010; J7120; Q9967

== ENCOUNTER 2023-12-03 03:53 | Emergency (ER) | payer BC, SELFPAY ==
[2023-12-03 04:00] VITALS: BP 150/98; PULSE 88; RESP 18; TEMP 37.2; O2SAT 95; BMI 36.9
[2023-12-03] MEDS: 0.9 % SODIUM CHLORIDE 1000 ml 1,000 ML IV (04:15)
[2023-12-03] MEDS: ONDANSETRON 2 MG/ML inj 4 MG IVP (04:15)
[2023-12-03] MEDS: HYDROmorphone 0.5 mg/0.5 ml inj 1 MG IVP (04:16)
[2023-12-03 04:17] LABS: Lactate* 1.1 mmol/L (0.5-1.9)
[2023-12-03] MEDS: HYOSCYAMINE SULFATE 0.125 MG TAB 0.25 MG SUBLINGUAL (04:17)
[2023-12-03 04:18] VITALS: O2SAT 97
[2023-12-03 04:19] LABS: Basophils Absolute Auto 0.03 K/uL (0.00-0.30); Basophils Percent Auto 0.3 % (0.0-3.0); Eosinophils Absolute Auto 0.05 K/uL (0.00-0.50); Eosinophils Percent Auto 0.5 % (0.0-7.0); Hematocrit 42.5 % (33.0-51.0); Lymphocytes Absolute Auto 3.19 K/uL (0.90-2.90); Lymphocytes Percent Auto 32.5 % (20-44); Mean Corpuscular HGB Conc 33 gm/dL (32-36); Mean Corpuscular Hemoglobin 32 pg (26-34); Mean Corpuscular Volume 96 fL (80-100); Monocytes Percent Auto 4.1 % (0.0-11.0); Neutrophils Absolute Auto 6.16 K/uL (1.7-7.0); Neutrophils Percent Auto 62.6 % (42.0-72.0); Platelet Count* 399 K/uL (140-440); Red Blood Count 4.43 m/uL (4.00-5.20); White Blood Count* 9.83 K/uL (4.50-11.00)
[2023-12-03 04:20] LABS: Slide Review Reflex No
--- NOTE | 2023-12-03 04:20 | ED.GENADULT ---
HPI - General Adult General Chief complaint: Abdominal Pain Stated complaint: gallbladder surgery-Pain Time Seen by Provider: 12/03/23 04:00 History of Present Illness HPI narrative: lap susannah friday. states abd painsevere, states feels either constipated or severe gas. pt constantly moving during triage uncomfortable. norco rx, did not take any 38-year-old woman presenting to the emergency department with concern of severe abdominal pain that comes in waves. Located primarily in the right upper quadrant where she had laparoscopic cholecystectomy that 2 days ago. Pain is quite severe. She does feel she is constipated ?oh yeah? noting that she has not had a bowel movement for 2 days. She did have a bowel movement just before surgery. She does have [place] available but stopped taking it because she thought maybe would be making her constipated. She has not had any fever. No drainage from surgical sites. No noted dysuria. Clarify that has not taken any [place] for approximately the last 24 hours. Review records would seem to indicate uncomplicated lap susannah. Related Data Previous Rx's Medication Instructions Recorded lisinopril 20 mg tablet 20 mg PO QDAY #30 tabs 07/18/23 losartan 50 mg tablet 50 mg PO QDAY #90 tabs 11/28/23 hydrocodone 5 mg-acetaminophen 325 1 tab PO Q6H PRN pain #20 tabs 12/01/23 mg tablet naproxen 500 mg tablet 500 mg PO BID PRN pain #30 tabs 12/03/23 Allergies Allergy/AdvReac Type Severity Reaction Status Date / Time No Known Drug Allergies Allergy Verified 12/03/23 05:21 Review of Systems Status of ROS: Reports: 6 or more systems reviewed and unremarkable except as noted in History and below PFSH PFSH Surgical History H/O arthroscopy of left knee (03/24/23) ?Z98.890 - Other specified postprocedural states (ICD-10) History of appendectomy ?Z90.49 - Acquired absence of other specified parts of digestive tract (ICD-10) Family History Other ASCVD (arteriosclerotic cardiovascular disease) Diabetes Social History What is your current living situation?: I presently have a place to live Problems where you live: no known problems and declined to answer In the past 12 months, utilities in danger of being shut off: no In past 12 months, lack of transportation kept you from medical appts, meetings, work, or getting things needed for daily living: no In the past 12 mos, have been you worried that your food would run out before you had money to buy more?: never true In the past 12 mos, the food you bought just didn't last and you didn't have money to buy more?: never true Smoking Status: Current every day smoker What tobacco products do you use: cigarettes Years smoked: 23 Do you use any of these nicotine containing products: None How often do you have a drink containing alcohol: 2-4 times a month Alcohol type: beer How many standard drinks containing alcohol do you have on a typical day: 1 or 2 How often do you have six or more drinks on one occasion: Never AUDIT-C Alcohol total score: 2 Caffeine: Yes How often does anyone, including family, friends and others, physically hurt you: never How often does anyone, including family, friends and others, insult or talk down to you: sometimes How often does anyone, including family, friends and others, threaten you with harm: never How often does anyone, including family, friends and others, scream or curse at you: sometimes Little interest or pleasure in doing things: more than half the days Feeling down, depressed, or hopeless: not at all Are you using contraception or practicing any form of control: No Exam Narrative: Exam Narrative: I arrive in the room to sees Haylie seated and crying out in pain as an IV is about to be started. Most intense pain then fades perhaps within a minute though still present. I leave to order initial pain medication after brief conversation returning to examine further. Sees exquisitely tender that to palpation in the right upper quadrant, perhaps not surprisingly. Moderately tender as a move away from there Surgical sites look to be without drainage or inflammatory change other than trace erythema in the periumbilical site without notable induration. Diminished but present bowel sounds. Heart is in regular rate and rhythm. Lungs appear to be clear. Const: Vital Signs, click to edit/add: Vital Signs - 24 hr 12/03/23 04:00 12/03/23 04:18 12/03/23 06:45 Temperature 98.9 F 98.9 F Pulse Rate [Pulse Oximeter] 88 79 Respiratory Rate 18 18 Blood Pressure [Ri t Upper Arm] 150/98 H 128/78 Pulse Oximetry 95 97 97 Oxygen Delivery Me thod Room Air Room Air Documenting provider has reviewed patient's vital signs: yes Course Vital Signs Vital signs: Initial Vital Signs Temperature 98.9 F 12/03/23 04:00 Temperature Source Temporal Artery Scan 12/03/23 04:00 Pulse Rate 88 12/03/23 04:00 Respiratory Rate 18 12/03/23 04:00 Blood Pressure 150/98 H 12/03/23 04:00 Blood Pressure Mean 115 H 12/03/23 04:00 Blood Pressure Position Sitting 12/03/23 04:00 Pulse Oximetry 95 12/03/23 04:00 Oxygen Delivery Method Room Air 12/03/23 04:00 Vital Signs Temperature 98.9 F 12/03/23 04:00 Pulse Rate 88 12/03/23 04:00 Respiratory Rate 18 12/03/23 04:00 Blood Pressure 150/98 H 12/03/23 04:00 Pulse Oximetry 95 12/03/23 04:00 Oxygen Delivery Method Room Air 12/03/23 04:00 Temperature 98.9 F 12/03/23 06:45 Pulse Rate 79 12/03/23 06:45 Respiratory Rate 18 12/03/23 06:45 Blood Pressure 128/78 12/03/23 06:45 Pulse Oximetry 97 12/03/23 06:45 Oxygen Delivery Method Room Air 12/03/23 06:45 Medications Administered Medications: Discontinued Medications Generic Name Dose Route Start Last Admin Trade Name Freq PRN Reason Stop Dose Admin Hydromorphone HCl 1 mg 12/03/23 04:09 12/03/23 04:16 Hydromorphone 0.5 Mg/0.5 Ml Inj IVP 12/03/23 04:10 1 mg ONCE ONE Administration Hyoscyamine 0.25 mg 12/03/23 04:09 12/03/23 04:17 Hyoscyamine Sulfate 0.125 Mg Tab SUBLINGUAL 12/03/23 04:10 0.25 mg ONCE ONE Administration Sodium Chloride 1,000 mls @ 1,000 mls/hr 12/03/23 04:09 12/03/23 05:10 0.9 % Sodium Chloride 1000 Ml IV 12/03/23 05:08 Infused .Q1H ONE Infusion Ketorolac Tromethamine 30 mg 12/03/23 05:56 12/03/23 06:06 Ketorolac 30 Mg/Ml Inj IVP 12/03/23 05:57 30 mg ONCE ONE Administration Lorazepam 0.5 mg 12/03/23 04:35 12/03/23 04:41 Lorazepam 2 Mg/Ml Inj IVP 12/03/23 04:36 0.5 mg ONCE ONE Administration Ondansetron HCl 4 mg 12/03/23 04:09 12/03/23 04:15 Ondansetron 2 Mg/Ml Inj IVP 12/03/23 04:10 4 mg ONCE ONE Administration Medical Decision Making MDM Narrative Medical decision making narrative: Given L normal saline and initially Dilaudid. Hyoscyamine ordered; may or may not be helpful. Would like to see labs to direct imaging. Certainly could be constipation. Is seems colicky in nature consistent with intestinal colic possibly gas pain. Could be this motion concerning be exacerbating pain from biliary leak as well. Believe there was cholelithiasis. Ductal stone? Nephrolithiasis and ureteral colic? UTI? It seems a little early for an infection but possible. IV established as above. Later given ketorolac and lorazepam. Continued to have spasms of pain but over time in the emergency department did space out and were less intense. Ordered for IV contrasted CT abdomen pelvis. Labs are reassuring with only mildly elevated transaminases. Normal white count. Normal bilirubin and lipase --doubtful ductal stone. CT with what appears to have somewhat full right sided and transverse colon by my read. Small inflammation as might be expected in the gallbladder fossa. INDICATION: Day 2 postop cholecystectomy, severe pain COMPARISON: Intraoperative cholangiogram 12/01/2023, abdominal ultrasound 11/17/2023 TECHNIQUE: CT of the abdomen and pelvis after the administration of intravenous contrast. Multiplanar axial, coronal, and sagittal reformats were reconstructed. Contrast: 100 mL Isovue 370 intravenously. Oral contrast was not administered. FINDINGS: Lung bases: Basilar atelectasis. Findings of old healed granulomatous disease. Liver: Normal. No masses. Small amount of fat at the falciform ligament. Normal vasculature. Gallbladder and biliary tree: Recent cholecystectomy. Trace fluid at the operative site as expected. Surgical clips as expected. There is some very mild left greater than right intrahepatic biliary ductal dilatation. The extrahepatic bile duct is not dilated.. Pancreas: Normal. Spleen: Calcified granuloma. Normal size. Adrenal glands: Normal. No nodules. Kidneys and bladder: Normal size and position. Small right renal cyst. No calculi. No urinary tract dilation. The urinary bladder is normal. GI: No dilated loops of bowel. Fluid-filled distal small bowel without wall thickening or unusual enhancement. Fluid-filled cecum and right colon is mildly dilated with a few scattered air-fluid levels. Similar but lesser findings across the transverse colon. The left colon and rectum are decompressed. Vessels: Aorta and major branches, including the mesenteric vessels: Patent. Normal caliber. No atherosclerotic plaques. IVC and tributaries: Normal. Mesenteric and portal veins: Normal. Peritoneum: No free fluid. Lymph nodes: No adenopathy. Pelvis: IUD in endocervical canal. 2.7 cm exophytic mass at the uterine fundus is probably a subserosal fibroid. Physiologic appearance of both ovaries.. Bones: No fractures. No focal bone lesions. Normal for age. Abdominal wall: Healing laparoscopic site without complication.. IMPRESSION: 1. Fluid-filled bowel with air-fluid levels in a pattern most consistent with ileus. 2. Malpositioned intrauterine device in the endocervical canal. Recommend removal or repositioning. I do not think that the IUD in the endocervical canal is related to her pain. Was able to reach OBGYN to arrange follow-up for this for removal and replacement. Discussed case and imaging with surgeon Dr. Stone. Doubts ileus. Recommending more gentle laxative at this time. Pain management as needed. Haylie overall was improved and felt she could return home to more outpatient management. Close follow-up as needed. See patient discharge plan Medical Records Medical records reviewed: Yes I reviewed the patient's medical records Lab Data Lab results reviewed: Yes I reviewed the patient's lab results Labs: Lab Results 12/03/23 Range/Units 04:10 WBC 9.83 (4.50-11.00) K/uL RBC 4.43 (4.00-5.20) m/uL Hgb 14.0 (12.0-16.0) gm/dL Hct 42.5 (33.0-51.0) % MCV 96 (80-100) fL MCH 32 (26-34) pg MCHC 33 (32-36) gm/dL RDW Coeff of Jaret 13.0 (11.5-15.5) % Plt Count 399 (140-440) K/uL Neut % (Auto) 62.6 (42.0-72.0) % Lymph % (Auto) 32.5 (20-44) % Bourbon % (Auto) 4.1 (0.0-11.0) % Eos % (Auto) 0.5 (0.0-7.0) % Baso % (Auto) 0.3 (0.0-3.0) % Neut # (Auto) 6.16 (1.7-7.0) K/uL Lymph # (Auto) 3.19 H (0.90-2.90) K/uL Bourbon # (Auto) 0.40 (0.00-0.90) K/UL Eos # (Auto) 0.05 (0.00-0.50) K/uL Baso # (Auto) 0.03 (0.00-0.30) K/uL Abs Immat Gran (auto) 0.00 (0.00-0.30) K/uL Imm/Tot Granulo (auto) 0.0 % Sodium 140 (135-149) mmol/L Potassium 4.6 (3.6-5.1) mmol/L Chloride 108 (96-114) mmol/L Carbon Dioxide 26 (20-32) mmol/L Anion Gap 6 L (7-15) mEq/L BUN 16 (5-24) mg/dL Creatinine 0.8 (0.5-1.5) mg/dL Estimated Creat Clear 82.33 Estimated GFR 97 ml/min Glucose 91 (60-115) mg/dL Lactate 1.1 (0.5-1.9) mmol/L Calcium 9.1 (8.4-10.6) mg/dL Total Bilirubin 0.6 (0.1-1.5) mg/dL Direct Bilirubin 0.1 (0.0-0.5) mg/dL AST 36 H (12-35) U/L ALT 38 H (4-35) U/L Alkaline Phosphatase 57 (40-150) U/L C-Reactive Protein 0.6 (0.5-1.0) mg/dL Total Protein 7.2 (6.0-8.3) g/dL Albumin 4.4 (3.3-5.0) g/dL Lipase 58 (23-300) U/L Discharge Plan Discharge Clinical Impression: Postoperative abdominal pain Patient Disposition: Home w/ Parent or Adult Condition: Improved Additional Instructions: If necessary you can certainly take your [place]. I would consider taking naproxen regularly over the next few days. Send in a prescription for you but it can be purchased [id number]. Can take up to 500 mg 2 times daily. Focus on hydration. Report/be seen for fever, persistent/uncontrolled pain, repeated vomiting. If not improved by tomorrow I would call to [facility] surgery nurse, Consider taking 3 doses of MiraLax in at least 8 oz of liquid by early afternoon. Take daily and adjust to stool consistency. Typically while taking opiates, senna is a helpful bowel aid but we will however concern here is that it might be too stimulating and therefore painful. Prescriptions: New naproxen 500 mg tablet 500 mg PO BID PRN (Reason: pain) Qty: 30 0RF No Action losartan 50 mg tablet 50 mg PO QDAY Qty: 90 0RF Patient Comments: has not started taking yet. Instructed to start taking after surgery today. lisinopril 20 mg tablet 20 mg PO QDAY Qty: 30 5RF hydrocodone-acetaminophen 5-325 mg tablet 1 tab PO Q6H PRN (Reason: pain) Qty: 20 0RF Follow Up/Referrals: Donald Smith MD [Primary Care Provider] - Stand Alone Forms: [employer] Info Instructions
--- OUTSIDE RECORDS SUMMARY | 2023-12-03 04:21 | XMS_ITS | Referral Summary ---
Author Name Unknown Organization [facility] Address [address] [place] [address] Care Team Providers Care Housecleaner Floor Name Role Phone Elsewhere, Pcp Primary Care Provider Unavailabl e Source Comments Patient records contain information from all sites at [facility]. For routine questions regarding patient records, call [phone] during business hours, M-F 8:00 AM - 5:00 PM Central Time. Record requests for emergency care only can be directed to [phone] at any time.[facility] Allergies No known active allergies Medications No [...] of Treatment Not on file Care Teams Housecleaner Floor Relationship Specialty Start Date End Date Elsewhere, Pcp PCP - General 02/08/22
--- OUTSIDE RECORDS SUMMARY | 2023-12-03 04:21 | XMS_ITS ---
Author Name Unknown Organization [facility] Address [address] [place] [address] Care Team Providers Care Union Steward Name Role Phone Unavailable Unavailable Unavailable Surgery Details Not on file Complications Check Surgery Details section. Procedure Estimated Blood Loss Check Surgery Details section. Procedure Findings Check Surgery Details section. Procedure Specimens Taken Check Surgery Details section.
--- OUTSIDE RECORDS SUMMARY | 2023-12-03 04:21 | XMS_ITS | Encounter Summary ---
Author Name Unknown Organization [facility] Address [address] [place] [address] Care Team Providers Care Lunchroom Food Service Supervisor Name Role Phone Elsewhere, Pcp Primary Care Provider Unavailabl e Encounter Details Date Type Department Care Team (Late st Contact Info) Description 06/03/2012 Historical Ophthalmology RST OPH Mitra Najera M.D. 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 [...] left eye CDM Reports - EYEGEN Id: [id number] Status: Fnl documented in this encounter Plan of Treatment Not on file documented as of this encounter Visit Diagnoses Not on filedocumented in this encounter Care Teams Lunchroom Food Service Supervisor Relationship Specialty Start Date End Date Elsewhere, Pcp PCP - General 02/08/22 documented as of this encounter
--- OUTSIDE RECORDS SUMMARY | 2023-12-03 04:21 | XMS_ITS | Clinical Summary ---
Author Name Unknown Organization [facility] Address [address] [place] [address] Care Team Providers Care Dog Hair Clipper Name Role Phone Elsewhere, Pcp Primary Care Provider Unavailabl e Source Comments Patient records contain information from all sites at [facility]. For routine questions regarding patient records, call [phone] during business hours, M-F 8:00 AM - 5:00 PM Central Time. Record requests for emergency care only can be directed to [phone] at any time.[facility] Allergies No known active allergies Medications No [...] age to complete this topic Care Teams Dog Hair Clipper Relationship Specialty Start Date End Date Elsewhere, Pcp PCP - General 02/08/22
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
--- OUTSIDE RECORDS SUMMARY | 2023-12-03 04:21 | XMS_ITS | Clinical Summary ---
Author Name Unknown Organization [facility] Address [place], [place] [address] Care Team Providers Care Geographic Information Scientist Name Role Phone Pcp, No Primary Care Provider Unavailabl e Allergies No known active allergies Medications Medication Sig Dispensed Refills Start Date End Date Status TRI-PREVIFEM 0.18/0.215/0.25 mg-35 mcg (28) tablet 2 03/21/2016 Active durable medical equipment (DME)Indications:Plan tar fasciitis [id number] Plantar Fasciitis Night Splint, M 1 Each 0 04/24/2021 Active Encounters Date Type Department Care Team Description 12/01/2023 Lab Requisition [facility] [phone] Sunday Fontenot MD from Last 3 Months Family History Medical History Relation Name Comments [...] age to complete this topic Care Teams Geographic Information Scientist Relationship Specialty Start Date End Date Pcp, No . PCP - General 05/16/14
--- NOTE | 2023-12-03 04:35 | CRLHL7_ITS ---
For Patients: As a result of the 21st Century Cures Act, medical imaging exams and procedure reports are released immediately into your electronic medical record. You may view this report before your referring provider. If you have questions, please contact your health care provider. INDICATION: Day 2 postop cholecystectomy, severe pain COMPARISON: Intraoperative cholangiogram 12/01/2023, abdominal ultrasound 11/17/2023 TECHNIQUE: CT of the abdomen and pelvis after the administration of intravenous contrast. Multiplanar axial, coronal, and sagittal reformats were reconstructed. Contrast: 100 mL Isovue 370 intravenously. Oral contrast was not administered. FINDINGS: Lung bases: Basilar atelectasis. Findings of old healed granulomatous disease. Liver: Normal. No masses. Small amount of fat at the falciform ligament. Normal vasculature. Gallbladder and biliary tree: Recent cholecystectomy. Trace fluid at the operative site as expected. Surgical clips as expected. There is some very mild left greater than right intrahepatic biliary ductal dilatation. The extrahepatic bile duct is not dilated.. Pancreas: Normal. Spleen: Calcified granuloma. Normal size. Adrenal glands: Normal. No nodules. Kidneys and bladder: Normal size and position. Small right renal cyst. No calculi. No urinary tract dilation. The urinary bladder is normal. GI: No dilated loops of bowel. Fluid-filled distal small bowel without wall thickening or unusual enhancement. Fluid-filled cecum and right colon is mildly dilated with a few scattered air-fluid levels. Similar but lesser findings across the transverse colon. The left colon and rectum are decompressed. Vessels: Aorta and major branches, including the mesenteric vessels: Patent. Normal caliber. No atherosclerotic plaques. IVC and tributaries: Normal. Mesenteric and portal veins: Normal. Peritoneum: No free fluid. Lymph nodes: No adenopathy. Pelvis: IUD in endocervical canal. 2.7 cm exophytic mass at the uterine fundus is probably a subserosal fibroid. Physiologic appearance of both ovaries.. Bones: No fractures. No focal bone lesions. Normal for age. Abdominal wall: Healing laparoscopic site without complication.. IMPRESSION: 1. Fluid-filled bowel with air-fluid levels in a pattern most consistent with ileus. 2. Malpositioned intrauterine device in the endocervical canal. Recommend removal or repositioning. Please note that all CT scans at this facility use dose modulation, iterative reconstruction, and/or weight-based dosing when appropriate to reduce radiation dose to as low as reasonably achievable. Dictated by Ara Jevon,MD @ 12/03/2023 5:31:02 AM (Electronically Signed)
[2023-12-03 04:39] LABS: Albumin* 4.4 g/dL (3.3-5.0); Chloride* 108 mmol/L (96-114); Sodium* 140 mmol/L (135-149)
[2023-12-03 04:40] LABS: Potassium* 4.6 mmol/L (3.6-5.1)
[2023-12-03 04:41] LABS: Creatinine* 0.8 mg/dL (0.5-1.5); Est. Creatinine Clearance* 82.33; Estimated Glomerular Filt Rate 97 ml/min
[2023-12-03] MEDS: LORazepam 2 MG/ML inj 0.5 MG IVP (04:41)
[2023-12-03 04:42] LABS: Anion Gap 6 mEq/L (7-15); Aspartate Amino Transferase* 36 U/L (12-35); Bilirubin Direct* 0.1 mg/dL (0.0-0.5); Bilirubin Total* 0.6 mg/dL (0.1-1.5); Carbon Dioxide* 26 mmol/L (20-32); Total Protein* 7.2 g/dL (6.0-8.3)
[2023-12-03 04:43] LABS: Alanine Aminotransferase* 38 U/L (4-35); Alkaline Phosphatase* 57 U/L (40-150); Blood Urea Nitrogen* 16 mg/dL (5-24); Calcium* 9.1 mg/dL (8.4-10.6); Glucose* 91 mg/dL (60-115); Lipase* 58 U/L (23-300)
[2023-12-03 04:45] LABS: C Reactive Protein* 0.6 mg/dL (0.5-1.0)
[2023-12-03] MEDS: KETOROLAC 30 MG/ML inj IVP (06:06)
[2023-12-03 06:45] VITALS: BP 128/78; PULSE 79; RESP 18; TEMP 37.2; O2SAT 97
== END 2023-12-03 08:09 | disposition home or self-care (01) ==
PROVIDERS: Emergency Provider Family Medicine; PCP Family Medicine
DX: G89.18 Other acute postprocedural pain (principal); R10.9 Unspecified abdominal pain
CPT/HCPCS: 36415; 74177; 80048; 80076; 81001; 83605; 83690; 85025; 86140; 94761; 96374; 96375; 99284; 99285; A9270; J1170; J1885; J2060; J2405; J7030; Q9967

== ENCOUNTER 2023-12-23 12:04 | Outpatient (CLI) | payer BC, SELFPAY ==
--- OUTSIDE RECORDS SUMMARY | 2023-12-23 12:08 | XMS_ITS | Referral Summary ---
Author Name Unknown Organization [facility] Address [address] [place] [address] Care Team Providers Care Sql Ssrs Ssis Developer Name Role Phone Elsewhere, Pcp Primary Care Provider Unavailabl e Source Comments Patient records contain information from all sites at [facility]. For routine questions regarding patient records, call [phone] during business hours, M-F 8:00 AM - 5:00 PM Central Time. Record requests for emergency care only can be directed to [phone] at any time.[facility] Allergies No known active allergies Medications No [...] of Treatment Not on file Care Teams Sql Ssrs Ssis Developer Relationship Specialty Start Date End Date Elsewhere, Pcp PCP - General 02/08/22
--- OUTSIDE RECORDS SUMMARY | 2023-12-23 12:08 | XMS_ITS | Clinical Summary ---
Author Name Unknown Organization [facility] Address [address] [place] [address] Care Team Providers Care Puppet Master Name Role Phone Elsewhere, Pcp Primary Care Provider Unavailabl e Source Comments Patient records contain information from all sites at [facility]. For routine questions regarding patient records, call [phone] during business hours, M-F 8:00 AM - 5:00 PM Central Time. Record requests for emergency care only can be directed to [phone] at any time.[facility] Allergies No known active allergies Medications [...] age to complete this topic Care Teams Puppet Master Relationship Specialty Start Date End Date Elsewhere, Pcp PCP - General 02/08/22
--- OUTSIDE RECORDS SUMMARY | 2023-12-23 12:08 | XMS_ITS | Encounter Summary ---
Author Name Unknown Organization [facility] Address [address] [place] [address] Care Team Providers Care Superintendent Drivers Name Role Phone Elsewhere, Pcp Primary Care Provider Unavailabl e Encounter Details Date Type Department Care Team (Late st Contact Info) Description 06/03/2012 Historical Ophthalmology RST OPH Mitra Najera M.D. 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 HISTORY OF [...] states that she got Quat, a dish storage brine worker, in her eyes about6:30 PM last night. [...] left eye CDM Reports - EYEGEN Id: [id number] Status: Fnl documented in this encounter Plan of Treatment Not on file documented as of this encounter Visit Diagnoses Not on filedocumented in this encounter Care Teams Superintendent Drivers Relationship Specialty Start Date End Date Elsewhere, Pcp PCP - General 02/08/22 documented as of this encounter
--- OUTSIDE RECORDS SUMMARY | 2023-12-23 12:08 | XMS_ITS ---
Author Name Unknown Organization [facility] Address [address] [place] [address] Care Team Providers Care Clay Washer Name Role Phone Unavailable Unavailable Unavailable Surgery Details Not on file Complications Check Surgery Details section. Procedure Estimated Blood Loss Check Surgery Details section. Procedure Findings Check Surgery Details section. Procedure Specimens Taken Check Surgery Details section.
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
--- OUTSIDE RECORDS SUMMARY | 2023-12-23 12:09 | XMS_ITS | Clinical Summary ---
Author Name Unknown Organization [facility] Address [place], [place] [address] Care Team Providers Care Plate Painter Name Role Phone Pcp, No Primary Care Provider Unavailabl e Allergies No known active allergies Medications Medication Sig Dispensed Refills Start Date End Date Status TRI-PREVIFEM 0.18/0.215/0.25 mg-35 mcg (28) tablet 2 03/21/2016 Active durable medical equipment (DME)Indications:Plan tar fasciitis [id number] Plantar Fasciitis Night Splint, M 1 Each 0 04/24/2021 Active Encounters Date Type Department Care Team Description 12/22/2023 11:43 PM WOOD SHOP TEACHER - 12/23/2023 1:24 AM [facility] Emergency [facility] [address] [place] [address] John Buchanan MD Right flank pain (Primary Dx); Right-sided low back pain without sciatica, unspecified chronicity Discharge Disposition: Home Self Care 12/22/2023 Travel 12/01/2023 Lab Requisition [facility] [phone] Sunday Fontenot MD from Last 3 Months [...] Sign Reading Time Taken Comments Blood Pressure 161/95 12/23/2023 1:15 AM WOOD SHOP TEACHER Pulse 71 12/23/2023 1:15 AM WOOD SHOP TEACHER Temperature 36.2 ??C (97.1 ??F) 12/22/2023 1 0:21 PM WOOD SHOP TEACHER Respiratory Rate 16 12/22/2023 10:2 1 PM WO[employer] SHOP TEACHER Oxygen Saturation 98% 12/23/2023 1:15 AM WOOD SHOP TEACHER Inhaled Oxygen Concentration - - Weight 103.3 kg (227 lb 12.8 oz) 2023 10:20 PM WOOD SHOP TEACHER Height 162.6 cm (5' 4) 12/22/2023 10:2 0 PM WOOD SHOP TEACHER Body Mass Index 39.1 12/22/2023 10:20 PM WOOD SHOP TEACHER Plan of Treatment Health Maintenance Due Date [...] on patient's age to complete this topic Procedures Procedure Name Priority Date/Time Associated Diagnosis Comments CBC WITH AUTO DIFFERENTIAL STAT 12/23/2023 12:05 AM WOOD SHOP TEACHER LIPASE STAT 12/23/2023 12:05 AM WOOD SHOP TEACHER COMP METABOLIC PANEL STAT 12/23/2023 12:05 AM WOOD SHOP TEACHER CBC WITH AUTO DIFFERENTIAL STAT 12/23/2023 12:05 AM WOOD SHOP TEACHER URINALYSIS MICROSCOPIC STAT 12/22/2023 10:26 PM WOOD SHOP TEACHER UA W/ SEDIMENT EXAM REFLEXED PER CRITERIA STAT 12/22/2023 10:26 PM WOOD SHOP TEACHER LAB TRACKING EVENT Routine 12/01/2023 10 :45 AM WOOD SHOP TEACHER PATH TISSUE EXAM Routine 12/01/2023 10:4 5 AM WOOD SHOP TEACHER from Last 3 Months Results * (ABNORMAL) CBC WITH AUTO DIFFERENTIAL (12/23/2023 12:05 AM WOOD SHOP TEACHER) WHITE BLOOD COUNT 10.6 4.5 - 11.0 thou/cu mm 12/23/2023 12:14 AM [facility] RED BLOOD COUNT 4.53 4.00 - 5.20 mil/cu mm 12/23/2023 12:14 AM [facility] HEMOGLOBIN 14.4 12.0 - 16.0 g/dL 12/23/2023 12:14 AM [facility] HEMATOCRIT 43.2 33.0 - 51.0 % 12/23/2023 12:14 AM [facility] MCV 95 80 - 100 fL 12/23/2023 12:14 AM [facility] MCH 31.8 26.0 - 34.0 pg 12/23/2023 12:14 AM [facility] MCHC 33.3 32.0 - 36.0 g/dL 12/23/2023 12:14 AM [facility] RDW 13.9 11.5 - 15.5 % 12/23/2023 12:14 AM [facility] PLATELET COUNT 382 140 - 440 thou/cu mm 12/23/2023 12:14 AM [facility] MPV 9.6 6.5 - 11.0 fL 12/23/2023 12:14 AM [facility] % NEUT 72.6 % 12/23/2023 12:14 AM [facility] % LYMPH 21.2 % 12/23/2023 12:14 AM [facility] % MONO 5.1 % 12/23/2023 12:14 AM [facility] % EOS 0.9 % 12/23/2023 12:14 AM [facility] % BASO 0.2 % 12/23/2023 12:14 AM [facility] ABSOLUTE NEUTROPHILS 7.7(H) 1.7 - 7.0 thou/cu mm 12/23/2023 12:14 AM [facility] ABSOLUTE LYMPHOCYTES 2.3 0.9 - 2.9 thou/cu mm 12/23/2023 12:14 AM [facility] ABSOLUTE MONOCYTES 0.5 <0.9 thou/cu mm 12/23/2023 12:14 AM [facility] ABSOLUTE EOSINOPHILS 0.1 <0.5 thou/cu mm 12/23/2023 12:14 AM [facility] ABSOLUTE BASOPHILS 0.0 <0.3 thou/cu mm 12/23/2023 12:14 AM [facility] Blood BLOOD SPECIMEN / Unknown Butterfly / Unknown 12/23/2023 12:05 AM WOOD SHOP TEACHER 12/23/2023 12:08 AM WOOD SHOP TEACHER John Buchanan MD HEMATOLOGY Performing Organization Address City/[facility]/ZIP Co de Phone Number [facility] [address] [place] [address] * Lipase (12/23/2023 12:05 AM WOOD SHOP TEACHER) Pathologist [facility] LIPASE 22.6 13.0 - 60.0 IU/L 12/23/2023 12:33 AM [facility] Blood BLOOD SPECIMEN / Unknown Butterfly / Unknown 12/23/2023 12:05 AM WOOD SHOP TEACHER 12/23/2023 12:08 AM WOOD SHOP TEACHER John Buchanan MD CHEMISTRY Performing Organization Address City/[facility]/ZIP Co de Phone Number [facility] [address] [place] [address] * Comp Metabolic Panel (12/23/2023 12:05 AM WOOD SHOP TEACHER) SODIUM 140 136 - 145 mmol/L 12/23/2023 12:33 AM [facility] POTASSIUM 4.3 3.5 - 5.1 mmol/L 12/23/2023 12:33 AM [facility] CHLORIDE 106 98 - 107 mmol/L 12/23/2023 12:33 AM [facility] CO2,TOTAL 25 22 - 29 mmol/L 12/23/2023 12:33 AM [facility] ANION GAP 9 5 - 18 12/23/2023 12:33 AM [facility] GLUCOSE 99 70 - 99 mg/dL 12/23/2023 12:33 AM [facility] CALCIUM 9.8 8.6 - 10.0 mg/dL 12/23/2023 12:33 AM [facility] BUN 12 6 - 20 mg/dL 12/23/2023 12:33 AM [facility] CREATININE 0.79 0.50 - 0.90 mg/dL 12/23/2023 12:33 AM [facility] BUN/CREAT RATIO 15 10 - 20 12:33 AM [facility] eGFR >90 >90 mL/min/1.7 3m2 12/23/2023 12:33 AM [facility] Comment:As of 2022, eG FR is calculated by the CKD-EPI creatinine equation without race adjustment. ??eGFR can be influenced by muscle mass, exercise, and diet. ??The reported eGFR is an estimation only and is only applicable if the renal function is stable. ALBUMIN 4.5 4.0 - 4.9 g/dL 12/23/2023 12:33 AM [facility] PROTEIN,TOTAL 7.1 6.0 - 8.0 g/dL 12/23/2023 12:33 AM [facility] BILIRUBIN,TOTAL 0.6 0.0 - 1.2 mg/dL 12/23/2023 12:33 AM [facility] ALK PHOSPHATASE 76 35 - 104 IU/L 12/23/2023 12:33 AM [facility] ALT (SGPT) 25 10 - 35 IU/L 12/23/2023 12:33 AM [facility] AST (SGOT) 17 10 - 35 IU/L 12/23/2023 12:33 AM [facility] Blood BLOOD SPECIMEN / Unknown Butterfly / Unknown 12/23/2023 12:05 AM WOOD SHOP TEACHER 12/23/2023 12:08 AM WOOD SHOP TEACHER John Buchanan MD CHEMISTRY Performing Organization Address [facility] Co de Phone Number [facility] [address] [place] [address] * (ABNORMAL) URINALYSIS MICROSCOPIC (12/22/2023 10:26 PM WOOD SHOP TEACHER) RBC 0-2 0-2, None Seen /HPF 12/22/2023 10:34 PM [facility] WBC 3-5 0-2, 3-5, None Seen /HPF 12/22/2023 10:34 PM [facility] BACTERIA Moderate(A ) None Seen, Rare, Few Bacteria/ HPF 12/22/2023 10:34 PM [facility] EPITHELIAL CELLS Moderate(A ) None Seen, Few Epi/HPF 12/22/2023 10:34 PM [facility] AMORPHOUS Present(A) (none) 12/22/2023 10:34 PM [facility] Urine URINE SPECIMEN / Unknown Non-Blood / Unknown 12/22/2023 10:26 PM WOOD SHOP TEACHER 12/22/2023 10:30 PM WOOD SHOP TEACHER Divina Epstein MD URINE Performing Organization Address [facility]/ZIP Co de Phone Number [facility] [address] [place] [address] * (ABNORMAL) UA W/ SEDIMENT EXAM REFLEXED PER CRITERIA (12/22/2023 10:26 PM WOOD SHOP TEACHER) COLOR Yellow Yellow Color 12/22/2023 10:34 PM [facility] CLARITY Slightly Cloudy(A) Clear Clarity 12/22/2023 10:34 PM [facility] SPECIFIC GRAVITY,URINE 1.020 1.010, 1.015, 1.020, 1.025 12/22/2023 10:34 PM [facility] PH,URINE 7.5 6.0, 7.0, 8.0, 5.5, 6.5, 7.5, 8.5 12/22/2023 10:34 PM [facility] UROBILINOGEN, QUALITATIVE Normal Normal EU/dl 12/22/2023 10:34 PM [facility] PROTEIN, URINE Trace(A) Negative mg/dL 12/22/2023 10:34 PM [facility] GLUCOSE, URINE Negative Negative mg/dL 12/22/2023 10:34 PM [facility] KETONES,URINE Negative Negative mg/dL 12/22/2023 10:34 PM [facility] BILIRUBIN,URI NE Negative Negative 12/22/2023 10:34 PM [facility] OCCULT BLOOD,URINE Negative Negative 12/22/2023 10:34 PM [facility] NITRITE Negative Negative 12/22/2023 10:34 PM [facility] LEUKOCYTE ESTERASE Trace(A) Negative 12/22/2023 10:34 PM [facility] Urine URINE SPECIMEN / Unknown Non-Blood / Unknown 12/22/2023 10:26 PM WOOD SHOP TEACHER 12/22/2023 10:30 PM WOOD SHOP TEACHER Divina Epstein MD URINE [facility] [address] [place] [address] * LAB TRACKING EVENT (12/01/2023 10:45 AM WOOD SHOP TEACHER) Other (Other) Client Collect / Unknown 12/01/2023 10:45 AM WOOD SHOP TEACHER 12/01/2023 10:02 PM WOOD SHOP TEACHER Sunday Fontenot MD LAB BILL ONLY [facility] [address] [place] [address], [place] * PATH TISSUE EXAM (12/01/2023 10:45 AM WOOD SHOP TEACHER) Case Report Pathology Report ?Case: [id number] ? Authorizing Provider: ??Sunday Fontenot MD ?Collected: ? 12/01/2023 1045 ? Ordering Location: ? [facility] ?Received: ?12/02/2023 0910 ? Pathologist: ? Ariel Barahona MD ? Specimen: ?Gallbladder ? 12/03/2023 2:46 PM WOOD SHOP TEACHER [facility] Final Diagnosis A) GALLBLADDER, CHOLECYSTECTOMY: 1. Chronic cholecystitis 2. Cholelithiasis 3. Negative for dysplasia and malignancy 12/03/2023 2:46 PM WOOD SHOP TEACHER [facility] Clinical Information Symptomatic cholelithiasis 12/03/2023 2:46 PM WOOD SHOP TEACHER [facility] Gross Description A) Received in formalin, labeled with the patient's name and gallbladder, is a previously disrupted 5.2 x 2.7 x 1.5 cm gallbladder with an attached 1.0 cm in length by 0.4 cm in diameter stapled cystic duct. ??The lumen contains an abundant amount of dark green tenacious bile. ??Also identified in the gallbladder is a 1.0 x 0.4 x 0.2 cm aggregate of multiple yellow, bosselated and friable choleliths, which do not appear to obstruct the cystic duct. ??The gallbladder wall is 0.2 cm in average thickness and unremarkable. ??The mucosa is bile-stained green and velvety with diffuse yellow stippling. ??No lesions or masses are identified. ??Collection Officer sections to include the cystic duct margin, en face, are submitted in 1 cassette. JKT 12/02/2023 12/03/2023 2:46 PM WOOD SHOP TEACHER [facility] Microscopic Description The final diagnosis is based on microscopic examination of appropriate sections of all specimens. 12/03/2023 2:46 PM WOOD SHOP TEACHER [facility] Additional Information Interpreted at [facility], Central Laboratory - [address] [facility] [address] [address] 12/03/2023 2:46 PM WOOD SHOP TEACHER [facility] Other SPECIMEN FROM GALLBLADDER / Unknown 12/01/2023 10:45 AM WOOD SHOP TEACHER 12/02/2023 9:10 AM WOOD SHOP TEACHER Sunday Fontenot MD PATHOLOGY/CYTOLOGY [facility] [address] [place] [address], from Last 3 Months Care Teams Plate Painter Relationship Specialty Start Date End Date Pcp, No . PCP - General 05/16/14
== END 2023-12-23 12:05 | disposition home or self-care (01) ==
PROVIDERS: PCP Family Medicine; Visit Provider Family Medicine
DX: R10.9 Unspecified abdominal pain (principal)
CPT/HCPCS: 80076; 83690

== ENCOUNTER 2025-02-02 13:57 | Outpatient (CLI) | payer BC, SELFPAY | END 2025-02-02 13:58 | disposition home or self-care (01) | PROVIDERS: PCP Family Medicine; Visit Provider Family Medicine | DX: E78.5 Hyperlipidemia, unspecified (principal); I10 Essential (primary) hypertension; Z12.4 Encounter for screening for malignant neoplasm of cervix; Z13.29 Encounter for screening for other suspected endocrine disorder | CPT/HCPCS: 80048; 80061; 84439; 87624; 87625; 88141; 88142 ==

== ENCOUNTER 2025-08-22 15:24 | Outpatient (CLI) | payer BC, SELFPAY | END 2025-08-22 15:25 | disposition home or self-care (01) | PROVIDERS: PCP Family Medicine; Visit Provider Family Medicine | DX: R10.9 Unspecified abdominal pain (principal); K85.90 Acute pancreatitis without necrosis or infection, unspecified | CPT/HCPCS: 80076; 83690 ==

== ENCOUNTER 2025-08-31 14:27 | Outpatient (CLI) | payer BC, SELFPAY ==
--- NOTE | 2025-08-31 15:00 | CRLHL7_ITS ---
For Patients: As a result of the Century Cures Act, medical imaging exams and procedure reports are released immediately into your electronic medical record. You may view this report before your referring provider. If you have questions, please contact your health care provider. Indication: ELEVATED LIVER ENZYME AND LIPASE Technique: CT Abdomen/Pelvis WITH 100 CC ISOVUE 370 intravenous contrast Please note that all CT scans at this facility use dose modulation, iterative reconstruction, and/or weight-based dosing when appropriate to reduce radiation dose to as low as reasonably achievable. Comparison: 12/03/2023 Findings: Lung bases are clear. Focal fat deposition within the liver adjacent to the falciform ligament is present. No suspicious intrahepatic mass. Status post cholecystectomy. No biliary obstruction. The pancreas is within normal limits. Calcified splenic granuloma. Adrenal glands are normal. 9 millimeter simple right renal cyst. IUD is present within the mid endometrial canal. Exophytic fibroid at the uterine fundus measures 2.5 cm. Other smaller fibroids also appear to be present. Small collapsing right ovarian cyst. Left ovary unremarkable. The appendix is absent. No bowel obstruction or free air. No excess pelvic free fluid or abscess. No adenopathy. Degenerative changes at the thoracolumbar junction. Impression: Normal appearance of the pancreas. Status post cholecystectomy without biliary obstruction. Incidental small right renal cyst. IUD in the mid endometrial canal. Multiple uterine fibroids. Further evaluation with pelvic ultrasound recommended. Please note that all CT scans at this facility use dose modulation, iterative reconstruction, and/or weight-based dosing when appropriate to reduce radiation dose to as low as reasonably achievable. Dictated by Aldo Auguste MD @ 09/01/2025 9:14:36 AM (Electronically Signed)
== END 2025-08-31 14:28 | disposition home or self-care (01) ==
LOC: CT 14:30
PROVIDERS: PCP Family Medicine; Visit Provider Family Medicine
DX: R10.13 Epigastric pain (principal); K85.90 Acute pancreatitis without necrosis or infection, unspecified
CPT/HCPCS: 74177; Q9967

== ENCOUNTER 2025-09-07 06:41 | Emergency (ER) | payer BC, SELFPAY ==
--- OUTSIDE RECORDS SUMMARY | 2025-08-20 16:46 | XMS_ITS | Encounter Summary ---
Author Organization [facility] Address [address] [place] [id number] Care Team Providers Care Electric Operator Name Role Phone Elsewhere, Pcp Primary Care Provider Unavailabl e Reason for Visit * Reason Comments Abdominal Pain Encounter Details Date Type Department Care Team ([facility] st Contact Info) Description 08/20/2025 4:46 PM CDT - 08/20/2025 7:12 PM CDT Emergency [facility] Emergency Department [address] [place] [phone] Mp Chandler M.D. 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 - 08/20/2025 7:08 PM CDT Your evaluation here was overall reassuring. At time of your discharge, your lipase, which is a test to evaluate for pancreatitis, had not been completed yet. We will call you if this comes back significantly abnormal. Please continue to monitor your symptoms and return to the emergency department if you have any newor worsening symptoms. You should also try to follow up with her primary care doctor if these episodes are recurrent. * Attachments The following attachments cannot be sent through Care Everywhere. * Nausea and Vomiting Adult Dpha-sy-Assl (Kittitian) documented in this encounter ED Notes * Bri Huertas M.D. - 08/20/2025 6:04 PM CDT CHIEF COMPLAINT/REASON FOR VISIT Abdominal Pain HISTORY OF PRESENT ILLNESS Haylie Toribio is a 40 y.o. female who presents to the Emergency Department today due to vomiting. Patient reports that she was in her normal state of health earlier today. Around noon, she began drinking alcohol while on a republic[employer] bus with several friends. She shortly after this began to feel epigastric abdominal pain. After finishing approximately 40 units drink as well as some fried food, she began having vomiting with associated epigastric pain and right upper quadrant pain. She denies any recent fevers or chills. She denies any changes with her bowel habits. No urinary symptoms. Denies chance of . IUD in place. History of prior cholecystectomy and appendectomy. OBJECTIVE Initial Vitals Temperature 08/20/25 1655 36.5 ??C Pulse Rate 08/20/25 1650 85 Heart Rate -- Resp -- Blood Pressure 08/20/25 1650 134/82 SpO2 08/20/25 1650 96 % Pain Score 08/20/25 1652 5 - Moderate pain PHYSICAL EXAMINATION Constitutional: Nursing note and vitals reviewed. HENT: Mouth/Throat: Oropharynx is clear and moist. Mucous membranes are moist. Eyes: Conjunctivae are normal. Cardiovascular: Normal rate and regular rhythm. Exam reveals no friction rub. No murmur heard. Pulmonary/Chest: Effort normal and breath sounds normal. No respiratory distress. Abdominal: Soft. Bowel sounds are normal. There is abdominal tenderness (primarily epigastric, though mild RUQ tenderness as well). Musculoskeletal: General: No edema. Neurological: Alert and oriented to person, place, and time. Skin: Skin is warm and dry. DIAGNOSTIC STUDIES LABORATORY RESULTS: Abnormal Labs Reviewed CBC WITH DIFFERENTIAL, B - Abnormal; Notable for the following components: Result Value Platelet Count 394 (*) Leukocytes 11.2 (*) Neutrophils 8.33 (*) All other components within normal limits HEPATIC FUNCTION PANEL, S - Abnormal; Notable for the following components: Aspartate Aminotransferase (AST), S 158 (*) Alanine Aminotransferase (ALT), S 77 (*) All other components within normal limits MICROSCOPIC AUTOMATED - Abnormal; Notable for the following components: Bacteria Present (*) All other components within normal limits IMAGING STUDIES: No orders to display MEDICAL DECISION MAKING Haylie Toribio is a 40 y.o. female who presents for abdominal pain. Patient presents with new onset epigastric and right upper quadrant pain that began while she was drinking alcohol earlier today. She has had several episodes of vomiting. She states her current symptoms feel very similar to prior episodes of biliary colic, but has her gallbladder removed. Differential diagnosis includes but is not limited to: Acute appendicitis, Enteritis, Colitis, Pancreatitis,Hepatobiliary Pathology, Diverticulitis, Constipation, UTI, IUD dislodgement, ovarian cyst, etc. On arrival, patient is hemodynamically stable. Normal heart rates here. Initial examination is notable for right upper quadrant and epigastric abdominal pain. The patient appears relatively uncomfortable. I did discuss option of giving her IV pain medication, but she was given fentanyl in the ambulance in his declining this at this time, stating that it made her feel off. Examination is otherwise overall reassuring. At this time, plan is to complete evaluation for abdominal pathology including CBC, BMP, hepatic function panel, and lipase. We will plan to give the patient a L of fluids as well as a GI cocktail toevaluate for possible gastric ulcer or gastritis. I did discuss with the patient the option to complete CT imaging at this time, and we elected to complete laboratory evaluation 1st with defer a CT, with the patient stating that she has had similar episodes in the past with negative CTs. CLINICAL IMPRESSION ED Course as of 08/21/2511 Sat Aug 20, [id number] Reevaluated patient at bedside. Reports that her symptoms have resolved. She has been pain free for about 45 minutes. 1899 Patient is requesting for discharge. She states that she is asymptomatic and would prefer to rest at home. I did discuss with her that the results of her lipase have not yet been completed and that we can not rule out pancreatitis at this time. She states that she would like to discharge and that if there was any concerns for this that she would return if symptoms return. Return precautions w ere discussed at bedside and the patient is agreeable with plan for discharge. 2055 Patient's lipase has returned in his elevated at 1156. I did call and speak with the patient on the phone. She states that her symptoms have not returned she has been able to tolerate fluids as well as a small snack without return of symptoms. I did discuss that given the elevated lipase, we would recommend further evaluation with a CT abdomen and pelvis. She states that ever symptoms recur she will return for further evaluation and treatment. She also states that she plans to reach out toher primary care provider for ongoing evaluation for this on Friday. Final Diagnoses: as of 08/21/2511 Nausea And Vomiting Bri Huertas MD Emergency Medicine Call Back: [phone] Bri Huertas M.D. Resident 08/21/2513 * Mp Chandler M.D. - 08/20/2025 5:05 PM CDT I have personally seen and examined this patient. I have fully participated in the care of this patient. I have reviewed all clinical information including history, physical exam, orders, and plan. Gia with the note of the resident. Patient has a subxiphoid right upper quadrant abdominal pain with profuse vomiting after being on aparty bus drinking Neal Wright and Coke. It exam shows some tenderness there but otherwise relatively benign abdomen. Laboratories are pending at this time. Await those studies. Addendum: Patient's symptoms totally resolved. She wanted to be discharged from the emergency department. We allowed her to be discharged. Labs had not returned completely yet. When they did return she had an AST and ALT elevation. Her lipase was 1165. My resident reached out to her and she still is having no significant pain. She had however received narcotics. Prior to her leaving CT was discussed with the patient and she refused at that time because she was feeling markedly better. After discussion with her regarding the lipase she agreed she would return if pain came back or worsened but otherwise would follow up with her primary on Friday for concerns that she had pancreatitis or someth ing that was transient that caused her lipase elevation. She has had gallstones in the past that wedo not know or have evidence that common duct stone was present. Final Diagnoses: as of 08/21/25 1407 Nausea And Vomiting Mp Chandler M.D. 08/21/25 1409 documented in this encounter Plan of Treatment Not on file documented as of this encounter Procedures Procedure Name Priority Date/Time Associated Diagnosis Comments LACTATE FOR SEPSIS WITH REFLEX, POCT STAT 08/20/2025 5:17 PM CDT HEPATIC FUNCTION PANEL, S STAT 08/20/2025 5:15 PM CDT CBC WITH DIFFERENTIAL, B STAT 08/20/2025 5:15 PM CDT HUMAN CHORIONIC GONADOTROPIN (HCG), EDELMIRA, STAT 08/20/2025 5:15 PM CDT LIPASE, S/P STAT 08/20/2025 5:15 PM CDT BASIC METABOLIC PANEL, S/P STAT 08/20/2025 5:15 PM CDT DIPSTICK, U STAT 08/20/2025 5:09 PM CDT MICROSCOPIC AUTOMATED STAT 08/20/2025 5:09 PM CDT BACTERIAL CULTURE, AEROBIC + SUSC, URINE STAT 08/20/2025 5:09 PM CDT PH, U STAT 08/20/2025 5:09 PM CDT OSMOLALITY, U STAT 08/20/2025 5:09 PM CDT URINALYSIS WITH MICROSCOPIC STAT 08/20/2025 5:09 PM CDT documented in this encounter Results * (ABNORMAL) Lactate for Sepsis with Reflex, POCT (08/20/2025 5:17 PM CDT) Lactate, POCT 0.40(L) 0.50 - 2.20 mmol/L 08/20/2025 9:38 PM CDT PCLX Blood (Blood, Venous) 08/20/2025 5:17 PM CDT 08/20/2025 5:17 PM CDT us Bri Huertas M.D. LAB POCT ORDERABLES - DEVICE Final Result Performing Organization Address City/[facility]/ZIP Co de Phone Number POC [facility] [address] [place] [address], [facility] PCLX [facility] POC [address] [place] [address] * hCG (Human Chorionic Gonadotropin), Quantitative, (08/20/2025 5:15 PM CDT) Pathologist [facility] HCG, Quantitative, , P 1.0 <5 IU/L 08/20/2025 5:39 PM CDT STMA Comment: Jennifer- and postmenopausal females may have detectable hCG concentrations (<=14 IU/L) due to pituitary production of hCG. Serum FSH measurement may aid in ruling out in this population. Blood (Blood, Venous) 08/20/2025 5:15 PM CDT 08/20/2025 5:23 PM CDT us Bri Huertas M.D. LAB BLOOD ADD-ON Final Result Performing Organization Address City/[facility]/ZIP Co de Phone Number [facility] [address] [place] [address], [facility] [address] [place] [address] * (ABNORMAL) Lipase (08/20/2025 5:15 PM CDT) Lipase, S 1165(H) 13 - 60 U/L 08/20/2025 8:32 PM CDT DTL Blood (Blood, Venous) 08/20/2025 5:15 PM CDT 08/20/2025 5:27 PM CDT us Bri Huertas M.D. LAB BLOOD ADD-ON Final Result [facility] [address] [place] [address], [facility] [address] [place] [address] * (ABNORMAL) Hepatic Function Panel (08/20/2025 5:15 PM CDT) Bilirubin, Total, S 0.8 0.0 - 1.2 mg/dL 08/20/2025 5:58 PM CDT DTL Bilirubin, Direct, S 0.3 0.0 - 0.3 mg/dL 08/20/2025 5:58 PM CDT DTL Aspartate Aminotransferase (AST), S 158(H) 8 - 43 U/L 08/20/2025 5:58 PM CDT DTL Alanine Aminotransferase (ALT), S 77(H) 7 - 45 U/L 08/20/2025 5:58 PM CDT DTL Alkaline Phosphatase, S 85 35 - 104 U/L 08/20/2025 5:58 PM CDT DTL Albumin, S 4.3 3.5 - 5.0 g/dL 08/20/2025 5:58 PM CDT DTL Protein, Total, S 6.7 6.3 - 7.9 g/dL 08/20/2025 5:58 PM CDT DTL Blood (Blood, Venous) 08/20/2025 5:15 PM CDT 08/20/2025 5:27 PM CDT Bri Huertas M.D. LAB BLOOD ADD-ON Final Result [facility] [address] [place] [address], [facility] DTL [facility] [address] [place] [address] * Basic Metabolic Panel (08/20/2025 5:15 PM CDT) Pathologist [facility] Potassium, P 4.5 3.6 - 5.2 mmol/L 08/20/2025 5:40 PM CDT STMA Sodium, P 141 135 - 145 mmol/L 08/20/2025 5:40 PM CDT STMA Chloride, P 105 98 - 107 mmol/L 08/20/2025 5:40 PM CDT STMA Bicarbonate, P 25 22 - 29 mmol/L 08/20/2025 5:40 PM CDT STMA Anion Gap, P 11 7 - 15 08/20/2025 5:40 PM CDT STMA BUN (Blood Urea Nitrogen), P 16 6 - 21 mg/dL 08/20/2025 5:40 PM CDT STMA Creatinine 0.89 0.59 - 1.04 mg/dL 08/20/2025 5:40 PM CDT STMA Estimated GFR (eGFR) 84 >=60 mL/min/BSA 08/20/2025 5:40 PM CDT STMA Comment: Estimated GFR calculated using the 2020 CKD_EPI creatinine equation. Calcium, Total, P 8.7 8.6 - 10.0 mg/dL 08/20/2025 5:40 PM CDT STMA Glucose, P 94 70 - 140 mg/dL 08/20/2025 5:40 PM CDT STMA Blood (Blood, Venous) 08/20/2025 5:15 PM CDT 08/20/2025 5:23 PM CDT Bri Huertas M.D. LAB BLOOD ADD-ON Final Result [facility] [address] [place] [address], [facility] STMA [facility] [address] [place] [address] * (ABNORMAL) CBC with Differential, Blood (08/20/2025 5:15 PM CDT) Hemoglobin 14.3 11.6 - 15.0 g/dL 08/20/2025 5:25 PM CDT STMA Hematocrit 42.8 35.5 - 44.9 % 08/20/2025 5:25 PM CDT STMA Erythrocytes 4.55 3.92 - 5.13 x10(12)/L 08/20/2025 5:25 PM CDT STMA MCV 94.1 78.2 - 97.9 fL 08/20/2025 5:25 PM CDT STMA RBC Distrib Width 12.5 12.2 - 16.1 % 08/20/2025 5:25 PM CDT STMA Platelet Count 394(H) 157 - 371 x10(9)/L 08/20/2025 5:25 PM CDT STMA Leukocytes 11.2(H) 3.4 - 9.6 x10(9)/L 08/20/2025 5:25 PM CDT STMA Neutrophils 8.33(H) 1.56 - 6.45 x10(9)/L 08/20/2025 5:25 PM CDT DHPM Lymphocytes 2.15 0.95 - 3.07 x10(9)/L 08/20/2025 5:25 PM CDT STMA Monocytes 0.64 0.26 - 0.81 x10(9)/L 08/20/2025 5:25 PM CDT STMA Eosinophils <0.03 0.03 - 0.48 x10(9)/L 08/20/2025 5:25 PM CDT STMA Basophils 0.03 0.01 - 0.08 x10(9)/L 08/20/2025 5:25 PM CDT STMA Blood (Blood, Venous) 08/20/2025 5:15 PM CDT 08/20/2025 5:23 PM CDT us Bri Huertas M.D. LAB BLOOD ADD-ON Final Result [facility] [address] [place] [address], [facility] STMA [facility] [address] [place] [address] [facility] [address] [place] [address] * Dipstick, Urine (08/20/2025 5:09 PM CDT) Hemoglobin, QL, U Negative Negative 08/20/2025 5:54 PM CDT DTL Leukocyte Esterase, U Negative Negative 08/20/2025 5:54 PM CDT DTL Nitrite, U Negative Negative 08/20/2025 5:54 PM CDT DTL Ketone, U Negative Negative mg/dL 08/20/2025 5:54 PM CDT DTL Glucose, U Negative Negative mg/dL 08/20/2025 5:54 PM CDT DTL Urine 08/20/2025 5:09 PM CDT 08/20/2025 5:29 PM CDT us Bri Huertas M.D. LAB URINE ORDERABLES Final Re sult [facility] [address] [place] [address], [facility] [address] [place] [address] * Osmolality, Urine (08/20/2025 5:09 PM CDT) Pathologist [facility] Osmolality, U 184 150 - 1150 mOsm/kg 08/20/2025 5:56 PM CDT DTL Urine 08/20/2025 5:09 PM CDT 08/20/2025 5:29 PM CDT us Bri Huertas M.D. LAB URINE ORDERABLES Final Re sult [facility] [address] [place] [address], [facility] [address] [place] [address] * (ABNORMAL) Microscopic Automated (08/20/2025 5:09 PM CDT) Pathologist [facility] Microscopy Abnormal 08/20/2025 5:54 PM CDT DTL RBC None Seen <3 /hpf 08/20/2025 5:54 PM CDT DTL WBC None Seen /hpf 08/20/2025 5:54 PM CDT DTL Comment: ----REFERENCE VALUE---- <4 (Males) <11 (Females) Bacteria Present(A) 08/20/2025 5:54 PM CDT DTL Urine 08/20/2025 5:09 PM CDT 08/20/2025 5:29 PM CDT us Bri Huertas M.D. LAB URINE ORDERABLES Final Re sult Performing Organization Address City/[facility]/ZIP Co de Phone Number [facility] [address] [place] [address], [address] [address] * pH, Urine (08/20/2025 5:09 PM CDT) [facility] pH, U 5.7 4.5 - 8.0 08/20/2025 5:5 6 PM CDT DT Urine 08/20/2025 5:09 PM CDT 08/20/2025 5:29 PM CDT us Bri Huertas M.D. LAB URINE ORDERABLES Final Re sult Performing Organization Address City/[facility]/ZIP Co de Phone Number [facility] [address] [place] [address], [facility] [address] [place] [address] * Bacterial Culture, Aerobic + Susceptibility, Urine (08/20/2025 5:09 PM CDT) [facility] Urine Culture Urogenital microbiota, susceptibilities not performed per laboratory criteria. 08/21/2025 12:01 PM CDT DTL Urine (Urine, Midstream) 08/20/2025 5:09 PM CDT 08/20/2025 5:51 PM CDT Comment:Specimen Source Site : Urine us Bri Huertas M.D. LAB MICROBIOLOGY - GENERAL OR DERABLES Final Result Performing Organization Address [facility] Co de Phone Number [facility] [address] [place] [address], [facility] DTL [facility] [address] [place] [address] * Urinalysis, with Microscopic: Urine, Midstream (08/20/2025 5:09 PM CDT) Source Urine, Urine, Midstream 08/20/2025 5:29 PM CDT DTL Color, U Yellow 08/20/2025 5:29 PM CDT DTL Clarity, U Clear 08/20/2025 5:29 PM CDT DTL Protein, U 5 <26 mg/dL 08/20/2025 6:04 PM CDT DTL Protein/Osmol ality 0.27 <0.42 ratio 08/20/2025 6:04 PM CDT DTL Predicted 24 HR Protein, U 205 <229 mg/24 h 08/20/2025 6:04 PM CDT DTL Predicted Range 51-830 mg/24 h 08/20/2025 6:04 PM CDT DTL Urine (Urine, Midstream) 08/20/2025 5:09 PM CDT 08/20/2025 5:29 PM CDT us Bri Huertas M.D. LAB URINE ORDERABLES Final Re sult Performing Organization Address [facility] Co de Phone Number [facility] [address] [place] [address], [facility] [address] [place] [address] documented in this encounter Visit Diagnoses Diagnosis Nausea And Vomiting- Primary documented in this encounter Administered Medications Inactive Administered Medications - up to 3 most recent administrations Medication Order MAR Action Action Date Dose Rate Site lidocaine viscous 2 % 15 mL, alum-mag hydroxide-simeth 30 mL suspension 45 mL, oral, Once, On 08/20/25 at 1705, For 1 dose, Mix ingredients prior to administration Given 08/20/2025 5:29 PM CDT 45 mL NaCl 0.9 % bolus 1,000 mL 1,000 mL, intravenous, at 1,000 mL/hr, Administer over 1 Hours, Once, On 08/20/25 at 1705, For 1 dose New Bag 08/20/2025 5:31 PM CDT 1,000 mL 1000 mL/hr documented in this encounter Active and Recently Administered Medications Times are shown in CDT. Scheduled Medication Order 08/18/2025 08/19/2025 08/20/2025 lidocaine viscous 2 % 15 mL, alum-mag hydroxide-simeth 30 mL suspension (COMPLETED) 45 mL, oral, Once, On 08/20/25 at 1705, For 1 dose, Mix ingredients prior to administration 1729 (Given - Provid er: Kirstin White R.N.) NaCl 0.9 % bolus 1,000 mL (COMPLETED) 1,000 mL, intravenous, at 1,000 mL/hr, Administer over 1 Hours, Once, On 08/20/25 at 1705, For 1 dose 1731 (New Bag - Prov ider: Kirstin White R.N.)1912 (Stopped - Provider: Clary Fuentes R.N., [facility]ush[facility]) documented in this encounter Care Teams Electric Operator Relationship Specialty Start Date End Date Elsewhere, Pcp PCP - General 02/08/22 documented as of this encounter
--- OUTSIDE RECORDS SUMMARY | 2025-09-07 06:42 | XMS_ITS | Encounter Summary ---
Author Organization [facility] Address [address] [place] [id number] Care Team Providers Care Credit Negotiator Name Role Phone Elsewhere, Pcp Primary Care Provider Unavailabl e Encounter Details Date Type Department Care Team ([facility] st Contact Info) Description 08/21/2025 Results Follow-Up [facility] Emergency Department [address] [place] [phone] Jeni Blancas M.S.N., R.N. 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
--- OUTSIDE RECORDS SUMMARY | 2025-09-07 06:43 | XMS_ITS | Encounter Summary ---
Author Organization [facility] Address [address] [place] [address] Care Team Providers Care Elevated Guard Name Role Phone Elsewhere, Pcp Primary Care Provider Unavailabl e Encounter Details Date Type Department Care Team (Late st Contact Info) Description 06/03/2012 Historical Ophthalmology RST OPH Mitra Najera M.D. 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 HISTORY OF [...] states that she got Quat, a dish trouble lineman, in her eyes about6:30 PM last night. [...] left eye CDM Reports - EYEGEN Id: [id number] Status: Fnl documented in this encounter Plan of Treatment Not on file documented as of this encounter Visit Diagnoses Not on filedocumented in this encounter Care Teams Elevated Guard Relationship Specialty Start Date End Date Elsewhere, Pcp PCP - General 02/08/22 documented as of this encounter
--- OUTSIDE RECORDS SUMMARY | 2025-09-07 06:43 | XMS_ITS | Clinical Summary ---
Author Organization [facility] Address [address] [place] [id number] Care Team Providers Care Lab Nurse Name Role Phone Elsewhere, Pcp Primary Care Provider Unavailabl e Source Comments Patient records contain information from all sites at [facility]. For routine questions regarding patient records, call [phone] during business hours, M-F 8:00 AM - 5:00 PM Central Time. Record requests for emergency care only can be directed to [phone] at any time.[facility] Allergies No known active allergies Medications No known medications Active Problems Problem Noted Date Diagnosed Date Management Contraception Prescription 08/07/2018 Herpes Genitalis 08/07/2018 Encounters Date Type Department Care Team Description 08/21/2025 Results Follow-Up [facility] Emergency Department [address] [place] [id number] Jeni Blancas M.S.N., R.N. Lipase 08/20/2025 4:46 PM CDT - 08/20/2025 7:12 PM CDT Emergency [facility] Emergency Department [address] [place] [phone] Mp Chandler M.D. 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 Gender Identity Not on file Sexual Orientation [...] Last Done Comments HIV Screening 1985 Hepatitis C Screening 1985 Lipid (Cholesterol) Screening 1985 Mammogram 1985 Tobacco Cessation counseling 1985 Hepatitis B Vaccines (1 of 3 - 19+ 3-dose series) 2004 Pneumococcal vaccine (0-49 years) (1 of 2 - PCV) 2004 HPV Vaccines (1 - 3-dose SCD M series) 2012 Cervical/Vaginal Cancer Screening 11/23/2022 11/23/2019, 12/01/2014 Depression Screening (Annual PHQ-2) 11/10/2024 DTaP,Tdap,and Td Vaccines (3 - Td or Tdap) 03/02/2025 03/02/2015, 09/22/2007, 02/14/1998 COVID-19 Vaccine (2024-2 6 season) 2025 Influenza Vaccine (#1) 2025 4, 09/18/2010 IPV Vaccines Aged Out No longer eligi ble based on patient's age to complete this topic Procedures Procedure Name Priority Date/Time Associated Diagnosis Comments LACTATE FOR SEPSIS WITH REFLEX, POCT STAT 08/20/2025 5:17 PM CDT HUMAN CHORIONIC GONADOTROPIN (HCG), EDELMIRA, STAT 08/20/2025 5:15 PM CDT LIPASE, S/P STAT 08/20/2025 5:15 PM CDT HEPATIC FUNCTION PANEL, S STAT 08/20/2025 5:15 PM CDT BASIC METABOLIC PANEL, S/P STAT 08/20/2025 5:15 PM CDT CBC WITH DIFFERENTIAL, B STAT 08/20/2025 5:15 PM CDT DIPSTICK, U STAT 08/20/2025 5:09 PM CDT OSMOLALITY, U STAT 08/20/2025 5:09 PM CDT MICROSCOPIC AUTOMATED STAT 08/20/2025 5:09 PM CDT PH, U STAT 08/20/2025 5:09 PM CDT URINALYSIS WITH MICROSCOPIC STAT 08/20/2025 5:09 PM CDT BACTERIAL CULTURE, AEROBIC + SUSC, URINE STAT 08/20/2025 5:09 PM CDT THINPREP SCREEN HPV REFLEX Routine 12/01/2014 1:25 PM CARDIOVASCULAR TECHNOLOGIST from Last 3 Months or Most Recently Relevant to Health Maintenance Results * (ABNORMAL) Lactate for Sepsis with Reflex, POCT (08/20/2025 5:17 PM CDT) Lactate, POCT 0.40(L) 0.50 - 2.20 mmol/L 08/20/2025 9:38 PM CDT PCLX Blood (Blood, Venous) 08/20/2025 5:17 PM CDT 08/20/2025 5:17 PM CDT us Bri Huertas M.D. LAB POCT ORDERABLES - DEVICE Final Result Performing Organization Address [facility] [address]/ZIP Co de Phone Number POC [facility] [address] [place] [address], [facility] PCLX [facility] [address] [place] [address] * (ABNORMAL) Hepatic Function Panel (08/20/2025 5:15 PM CDT) Pathologist [facility] Bilirubin, Total, S 0.8 0.0 - 1.2 [...] Huertas M.D. LAB BLOOD ADD-ON Final Result [facility] [address] [place] [address], [facility] DTL [facility] [address] [place] [address] * (ABNORMAL) CBC with Differential, Blood (08/20/2025 [...] Huertas M.D. LAB BLOOD ADD-ON Final Result [facility] [address] [place] [address], [facility] STMA [facility] [address] [place] [address] [facility] [address] [place] [address] * hCG (Human Chorionic Gonadotropin), Quantitative, (08/20/2025 5:15 PM CDT) Pathologist [facility] HCG, Quantitative, , P 1.0 <5 IU/L 08/20/2025 5:39 PM CDT STMA Comment: Jennifer- and postmenopausal females may have detectable hCG concentrations (<=14 IU/L) due to pituitary production of hCG. Serum FSH measurement may aid in ruling out in this population. Blood (Blood, Venous) 08/20/2025 5:15 PM CDT 08/20/2025 5:23 PM CDT us Bri Huertas M.D. LAB BLOOD ADD-ON Final Result [facility] [address] STMA [facility] [address] [place] [address] * (ABNORMAL) Lipase (08/20/2025 5:15 PM CDT) [facility] Lipase, S 1165(H) 13 - 60 U/L 08/20/2025 8:32 PM CDT DTL Blood (Blood, Venous) 08/20/2025 5:15 PM CDT 08/20/2025 5:27 PM CDT us Bri Huertas M.D. LAB BLOOD ADD-ON Final Result [facility] [address] DTL [facility] [address] [place] [address] * Basic Metabolic Panel (08/20/2025 5:15 PM CDT) [facility] Potassium, P 4.5 3.6 - 5.2 mmol/L [...] Huertas M.D. LAB BLOOD ADD-ON Final Result [facility] [address] [place] [address], [facility] [address] [place] [address] * Dipstick, Urine (08/20/2025 5:09 PM CDT) [...] ORDERABLES Final Re sult Performing Organization Address City/[facility] [address]/ZIP Co de Phone Number [facility] [address] [place] [address], [facility] [address] [place] [address] * (ABNORMAL) Microscopic Automated (08/20/2025 5:09 PM CDT) Microscopy Abnormal 08/20/2025 5:54 PM CDT DTL RBC None Seen <3 /hpf 08/20/2025 5:54 PM CDT DTL WBC None Seen /hpf 08/20/2025 5:54 PM CDT DTL Comment: ----REFERENCE VALUE---- <4 (Males) <11 (Females) Bacteria Present(A) 08/20/2025 5:54 PM CDT DTL Urine 08/20/2025 5:09 PM CDT 08/20/2025 5:29 PM CDT us Bri Huertas M.D. LAB URINE ORDERABLES Final Re sult Performing Organization Address [facility] [address]/[facility] Co de Phone Number [facility] [address] [place] [address], [facility] [address] [place] [address] * Bacterial Culture, Aerobic + Susceptibility, Urine (08/20/2025 5:09 PM CDT) Urine Culture Urogenital microbiota, susceptibilities not performed per laboratory criteria. 08/21/2025 12:01 PM CDT DTL Urine (Urine, Midstream) 08/20/2025 5:09 PM CDT 08/20/2025 5:51 PM CDT Comment:Specimen Source Site : Urine us Bri Huertas M.D. LAB MICROBIOLOGY - GENERAL OR DERABLES Final Result [facility] [address] [place] [address], [facility] [address] [place] [address] * pH, Urine (08/20/2025 5:09 PM CDT) pH, U 5.7 4.5 - 8.0 08/20/2025 5:5 6 PM CDT DTL Urine 08/20/2025 5:09 PM CDT 08/20/2025 5:29 PM CDT us Bri Huertas M.D. LAB URINE ORDERABLES Final Re sult Performing Organization Address [facility] [address]/[facility] Co de Phone Number [facility] [address] [place], [place] [address] [address] [place] [address] * Osmolality, Urine (08/20/2025 5:09 PM CDT) Pathologist [facility] Osmolality, U 184 150 - 1150 mOsm/kg 08/20/2025 5:56 PM CDT DTL Urine 08/20/2025 5:09 PM CDT 08/20/2025 5:29 PM CDT us Bri Huertas M.D. LAB URINE ORDERABLES Final Re sult Performing Organization Address [facility] [address]/[facility] Co de Phone Number [facility] [address] [place], [place] [id number] [place] [address] [address] [place] [address] * Urinalysis, with Microscopic: Urine, Midstream (08/20/2025 [...] ORDERABLES Final Re sult Performing Organization Address [facility] [address]/[facility] Co de Phone Number [facility] [address] [place] [address], [facility] [address] [place] [address] * Pathology ThinPrep Screen HPV Reflex (12/01/2014 1:25 PM CARDIOVASCULAR TECHNOLOGIST) Interpretation [id number] POWERCHART [facility] See Comment POWERCHART Comment: A. ThinPrep Pap Test Screen (Cervical/Endocervical HPV Reflex): Satisfactory for evaluation. Negative for intraepithelial lesion or malignancy. [facility]to[facility] See Comment POWERCHART Comment: Report electronically signed by STAN Godinez(ASCP) 12/07/2014 11:44 Interpreted by: EMMIE Galeana(ASCP) Spec DescTexas [facility] See Comment POWERCHART Comment: A. ThinPrep Pap Test Screen (Cervical/Endocervical HPV Reflex): Received clear specimen in ThinPrep vial. Test Performed by: [facility] [address] [place] [address] String Top Sealer: Kahlil Mcguire M.D. Cervix/Endocervix 12/01/2014 1:25 PM CARDIOVASCULAR TECHNOLOGIST us Teofilo White APRN, C.N.PAdrián LAB PAP PATHDX OR DERABLES Final Result POWERCHART from Last 3 Months or Most Recently Relevant to Health Maintenance Insurance BLUE CROSS BLUE SHIELD DILEEP Care Teams Lab Nurse Relationship Specialty Start Date End Date Elsewhere, Pcp PCP - General 02/08/22
[2025-09-07 06:44] VITALS: BP 167/81; PULSE 101; RESP 20; TEMP 36.8; O2SAT 99; BMI 37.8
--- NOTE | 2025-09-07 07:04 | CRLHL7_ITS ---
For Patients: As a result of the Century Cures Act, medical imaging exams and procedure reports are released immediately into your electronic medical record. You may view this report before your referring provider. If you have questions, please contact your health care provider. INDICATION: Epigastric pain and a history of pancreatitis. COMPARISON: 08/31/2025, 12/03/2023 TECHNIQUE: CT of the abdomen and pelvis with intravenous contrast. Multiplanar axial, coronal, and sagittal reformats were reconstructed. Contrast: 108 mL Isovue 370. FINDINGS: Lung bases: Normal. Liver: Normal. No mass. Gallbladder and bile ducts: Cholecystectomy. Mild central intrahepatic biliary ductal dilatation is probably reservoir effect. Pancreas: Normal. Spleen: Normal. Adrenal glands: Normal. Kidneys: Normal parenchyma. There is a 0.9 cm left renal lesion with indeterminate Hounsfield unit that has not changed significantly since 12/03/2023, this is probably a cyst. No new or worrisome renal lesion. No calculi. No urinary tract dilation. Urinary bladder: Normal. Pelvis: Partially expelled IUD is in the lower uterine segment and partially within the cervical canal. There are a couple of uterine fibroids. One is exophytic from the right fundus. Similar to the prior exam. Physiologic normal appearance of both ovaries.. Vessels: Normal. Bowel: No dilated or inflamed bowel. Appendectomy. Moderate stool burden. Lymph nodes: No adenopathy. Peritoneum: No ascites. Abdominal wall: No hernia. Bones: No fractures. No focal worrisome bone lesions. IMPRESSION: 1. Partially expulsed IUD in the lower uterine segment endometrial cavity and endocervical canal. 2. Cholecystectomy. No acute biliary tree or pancreas findings. Please note that all CT scans at this facility use dose modulation, iterative reconstruction, and/or weight-based dosing when appropriate to reduce radiation dose to as low as reasonably achievable. Dictated by Ara Escoto MD @ 09/07/2025 7:56:04 AM (Electronically Signed)
--- NOTE | 2025-09-07 07:09 | ED_ITS ---
HPI - General Adult General Chief complaint: Abdominal Pain Stated complaint: abdominal pain Time Seen by Provider: 09/07/25 06:46 Source: patient Mode of arrival: ambulatory Limitations: no limitations History of Present Illness HPI narrative: 40-year-old female presents to the emergency department with epigastric pain for the past 3 hours. Similar shorter lived episode of pain yesterday and an episode on the as well. With the episode on the , it sounds like she was evaluated at 1 of the [facility] and is as though she left AMA prior to her labs coming back. She was called and told that her blood tests were abnormal. It sounds like she followed up with her primary care provider and had her blood tests repeated as well as a CT and these were normal 3 days later. It sounds like was probably elevated liver function tests and a lipase though I do not have access to those records currently. I do review blood tests from the and the CT from the which and she states were normal. She is status post cholecystectomy 2 years ago, reports that the pain is similar to that time. Achy, constant, accompanied by nausea. Has not tried taking any medication to help with symptoms. No alcohol in the last couple of weeks. No fever. No trauma or injury. No bloody stools, no vomiting. Denies gynecological changes. No prior history of bowel obstructions. Past medical history reviewed. Notable for hypertension hyperlipidemia. Most recent lipid panel reviewed, did not reflect hypertriglyceridemia. No diabetes, is not on any G LP 1 medications. Smoker. ROS is notable for the GI symptoms as above only, otherwise denies times 12 systems. Related Data Home Medications ?Medication ?Instructions ?Recorded ?Confirmed copper 380 square mm intrauterine 1 device intrauterin e ONCE 02/02/25 08/22/25 device (ParaGard T 380A) Previous Rx's ?Medication ?Instructions ?Recorded levothyroxine 25 mcg tablet 25 mcg PO QDAY #90 tabs valsartan 320 mg tablet 320 mg PO QDAY #90 tabs 04/10 06/03 omeprazole 20 mg capsule,delayed 20 mg PO DAILY #90 ca ps 09/07/25 release Allergies Allergy/AdvReac Type Severity Reaction Status Date / Time No Known Drug Allergies Allergy Verified 09/07/25 07:46 PFSH PFS Surgical History S/P laparoscopic cholecystectomy ?Z90.49 - Acquired absence of other specified parts of digestive tract (ICD- 10) H/O arthroscopy of left knee (03/24/23) ?Z98.890 - Other specified postprocedural states (ICD-10) History of appendectomy ?Z90.49 - Acquired absence of other specified parts of digestive tract (ICD- 10) Family History Father High blood pressure Mother High blood pressure Sister High blood pressure Other ASCVD (arteriosclerotic cardiovascular disease) Diabetes Social History Narrative: 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 children Current smoker 1 pack every 2 days, has smoked 25 years What is your current living situation?: I presently have a place to live In the past 12 months, utilities in danger of being shut off: no In past 12 months, lack of transportation kept you from medical appts, meetings, work, or getting things needed for daily living: no In the past 12 mos, have been you worried that your food would run out before you had money to buy more?: never true In the past 12 mos, the food you bought just didn't last and you didn't have money to buy more?: never true Smoking Status: Current every day smoker What tobacco products do you use: cigarettes Years smoked: 23 Do you use any of these nicotine containing products: None How often do you have a drink containing alcohol: 2-4 times a month Alcohol type: beer How many standard drinks containing alcohol do you have on a typical day: 1 or 2 How often do you have six or more drinks on one occasion: Never AUDIT-C Alcohol total score: 2 Non-prescribed substance use details: quit drinking on 08/20/25 Caffeine: Yes How often does anyone, including family, friends and others, physically hurt you : never How often does anyone, including family, friends and others, insult or talk down to you: never How often does anyone, including family, friends and others, threaten you with harm: never How often does anyone, including family, friends and others, scream or curse at you: never Are you using contraception or practicing any form of control: No service: No Exam Const: Vital Signs, click to edit/add: Vital Signs - 24 hr 09/07/25 06:44 09/07/25 07:40 Temperature 98.2 F Pulse Rate [Pulse Oximeter] 101 H 82 Respiratory Rate 20 16 Blood Pressure [Ri ght Upper Arm] 167/81 H 112/76 Pulse Oximetry 99 99 Oxygen Delivery Me thod Room Air Room Air Documenting provider has reviewed patient's vital signs: yes Common normals: no apparent distress and alert Other: Speech is a little pressured and she is slightly irritable but appears well- nourished, well-hydrated and nontoxic. HENMT: Common normals: normocephalic, moist oral mucous membranes and o ropharynx normal Head and scalp: normocephalic Face and sinus: normal facial exam Mouth: oral and palatal mucosa normal Throat: posterior oropharynx normal Eye: Common normals: conjunctivae normal General eye: normal appearance of both eyes Conjunctiva: conjunctiva(e) normal Neck & C-Spine: Common normals: full ROM and no lymphadenopathy General: normal visual inspection Resp: Common normals: normal respiratory effort and clear to auscultation b ilaterally Effort & inspection: able to speak in complete sentences Auscultation: clear to auscultation bilaterally Cardio: Common normals: regular rate, regular rhythm, S1 normal heart sound, S2 normal heart sound and no murmurs Rate: regular rate Rhythm: regular rhythm Heart sounds: S1 normal and S2 normal GI: Common normals: Normal to inspection, nondistended, normoactive bowel sounds present, soft to palpation, no hepatosplenomegaly and no masses Palpation: soft and no hepatosplenomegaly Other: Moderate tenderness to epigastrium on palpation, not really over the right upper quadrant, negative Jaquez sign. No guarding. No mass : Common normals: no CVA tenderness Bladder/kidney exam: no CVA tenderness Back & Pelvis: Common normals: no CVA tenderness Thoracic spine/upper back: normal to inspection Extremity: Common normals: normal to inspection and normal capillary refill Neuro: Common normals: moves all extremities Sensorium/orientation: alert Speech: speech normal Psych: Common normals: cooperative Appearance: grossly normal Attenti on/concentration: attention grossly intact Insight: insight good Judgement: judgment good Skin: Common normals: no rashes or lesions noted General skin exam: no rashes or lesions noted Course Course ED Course: 40-year-old female with a history of prior cholecystectomy presenting with epigastric pain similar to episode where she describes pancreatitis and elevated liver enzymes a couple of weeks ago. I am concerned that this is another episode of pancreatitis but cannot exclude aortic emergency, gastritis, duodenal ulcer, obstructing gallstone, bowel obstruction, ischemic bowel, amongst others. Will place peripheral IV, give a Toradol and Zofran for symptom management. Obtain typical intra-abdominal labs, CT abdomen and pelvis. Await findings. May need ultrasound or consult for ERCP. Reevaluation(s) Time of Reevaluation #1: 08:13 Reevaluation #1: Counseled patient on lab and CT findings, all are very reassuring. Suspect this is gastritis. No signs of pancreatitis. There are no signs of bleeding ulcer or fluid collections that would suggest more worrisome pathology. Will start omeprazole 20 mg once daily and have patient follow-up with primary care in 2 weeks to see how things are going. Consider endoscopy, H pylori testing and further workup if still symptomatic. Will give 1st dose of omeprazole but also famotidine here in the ED to help jump start things. Counseled on avoidance of alcohol which she will continue to do and also recommended to avoid carbonated beverages as they can be very irritating to the got as well as NSAIDs. Alarm symptoms reviewed that would warrant ED re-evaluation. She verbalizes understanding and agreement. Written instructions provided Vital Signs Vital signs: Initial Vital Signs Temperature 98.2 F 09/07/25 06:44 Temperature Source Temporal Artery Scan 09/07/25 06:44 Pulse Rate 101 H 09/07/25 06:44 Pulse Rhythm Regular 09/07/25 06:44 Respiratory Rate 20 09/07/25 06:44 Blood Pressure 167/81 H 09/07/25 06:44 Blood Pressure Mean 109 H 09/07/25 06:44 Blood Pressure Position Sitting 09/07/25 06:44 Pulse Oximetry 99 09/07/25 06:44 Oxygen Delivery Method Room Air 09/07/25 06:44 Vital Signs Temperature 98.2 F 09/07/25 06:44 Pulse Rate 101 H 09/07/25 06:44 Respiratory Rate 20 09/07/25 06:44 Blood Pressure 167/81 H 09/07/25 06:44 Pulse Oximetry 99 09/07/25 06:44 Oxygen Delivery Method Room Air 09/07/25 06:44 Temperature 98.2 F 09/07/25 06:44 Pulse Rate 82 09/07/25 07:40 Respiratory Rate 16 09/07/25 07:40 Blood Pressure 112/76 09/07/25 07:40 Pulse Oximetry 99 09/07/25 07:40 Oxygen Delivery Method Room Air 09/07/25 07:40 Medical Decision Making Lab Data Lab results reviewed: Yes I reviewed the patient's lab results Lab results narrative: Labs are reassuring. No pancreatitis, no elevation of liver enzymes, no leukocytosis, inflammatory markers or anemia. Labs: Lab Results 09/07/25 Range/Units 07:16 WBC 6.42 (4.50-11.00) K/uL RBC 4.25 (4.00-5.20) m/uL Hgb 13.3 (12.0-16.0) gm/dL Hct 40.4 (33.0-51.0) % MCV 95 (80-100) fL MCH 31 (26-34) pg MCHC 33 (32-36) gm/dL RDW Coeff of Jaret 12.6 (11.5-15.5) % Plt Count 385 (140-440) K/uL Neut % (Auto) 64.1 (42.0-72.0) % Lymph % (Auto) 27.3 (20-44) % [place] % (Auto) 6.1 (0.0-11.0) % Eos % (Auto) 1.7 (0.0-7.0) % Baso % (Auto) 0.3 (0.0-3.0) % Neut # (Auto) 4.12 (1.7-7.0) K/uL Lymph # (Auto) 1.75 (0.90-2.90) K/uL [place] # (Auto) 0.40 (0.00-0.90) K/UL Eos # (Auto) 0.11 (0.00-0.50) K/uL Baso # (Auto) 0.02 (0.00-0.30) K/uL Abs Immat Gran (auto) 0.03 (0.00-0.30) K/uL Imm/Tot Granulo (auto) 0.5 % Sodium 138 (135-149) mmol/L Potassium 4.6 (3.6-5.1) mmol/L Chloride 106 (96-114) mmol/L Carbon Dioxide 23 (20-32) mmol/L Anion Gap 9 (7-15) mEq/L BUN 18 (5-24) mg/dL Creatinine 0.8 (0.5-1.5) mg/dL Estimated Creat Clear 80.72 Estimated GFR 95 ml/min Glucose 111 (60-115) mg/dL Lactate 0.7 (0.5-1.9) mmol/L Calcium 8.7 (8.4-10.6) mg/dL Total Bilirubin 0.7 (0.1-1.5) mg/dL AST 23 (12-35) U/L ALT 20 (4-35) U/L Alkaline Phosphatase 57 (40-150) U/L C-Reactive Protein < 0.5 L (0.5-1.0) mg/dL Total Protein 6.5 (6.0-8.3) g/dL Albumin 3.8 (3.3-5.0) g/dL Lipase 88 (23-300) U/L Imaging Data CT scan - abdomen: Attestation: I have reviewed the pertinent imaging results. My impression: Normal appearing CT Radiologist's impression: IMPRESSION: 1. Partially expulsed IUD in the lower uterine segment endometrial cavity and endocervical canal. 2. Cholecystectomy. No acute biliary tree or pancreas findings. Please note that all CT scans at this facility use dose modulation, iterative reconstruction, and/or weight-based dosing when appropriate to reduce radiation dose to as low as reasonably achievable. Dictated by Ara Escoto MD @ 09/07/2025 7:56:04 AM Discharge Plan Discharge Clinical Impression: Gastritis Patient Disposition: Home w/ Parent or Adult Condition: Improved Instructions: Gastritis (DC), Diet for Stomach Ulcers and Gastritis (ED) Additional Instructions: As we discussed, labs and CT do not show any pancreatitis or liver inflammation today. This is great news. Most likely the symptoms that you are having are related to gastritis, inflammation of the stomach lining. I would like for you to start taking omeprazole 20 mg once daily 30 minutes before your evening meal. Try to avoid alcohol, carbonated beverages to help the lining heal. Take the medication for 2 weeks. If your symptoms persist, I would recommend that you speak with her primary care provider about the next steps and workup which may include an EGD to look for ulcers, H pylori infection, other inflammatory conditions. If you have large amounts of bloody stools, high fevers or severe pain, you should return to the emergency department. You are cleared return to work, school or other duties as normal. Your IUD is sitting a little bit low but is not an emergent concern. Activity Level: No Restrictions Discharge Diet: Regular Prescriptions: New omeprazole 20 mg capsule,delayed release(DR/EC) 20 mg PO DAILY Qty: 90 1RF No Action ParaGard T 380A 380 square mm intrauterine device 1 device intrauterine ONCE Rx Instructions: as a single dose levothyroxine 25 mcg tablet 25 mcg PO QDAY Qty: 90 2RF valsartan 320 mg tablet 320 mg PO QDAY Qty: 90 2RF Follow Up/Referrals: Donald Smith MD [Primary Care Provider, Family Practice] Stand Alone Forms: [employer] Info Instructions
[2025-09-07 07:25] LABS: Lactate* 0.7 mmol/L (0.5-1.9)
[2025-09-07 07:36] LABS: Hematocrit* 40.4 % (33.0-51.0); Hemoglobin* 13.3 gm/dL (12.0-16.0); Immature Granulocytes Abs Auto 0.03 K/uL (0.00-0.30); Immature Granulocytes Pct Auto 0.5 %; Lymphocytes Absolute Auto 1.75 K/uL (0.90-2.90); Mean Corpuscular HGB Conc 33 gm/dL (32-36); Mean Corpuscular Hemoglobin 31 pg (26-34); Mean Corpuscular Volume 95 fL (80-100); RDW Coefficient of Variation % 12.6 % (11.5-15.5); Red Blood Count* 4.25 m/uL (4.00-5.20); White Blood Count* 6.42 K/uL (4.50-11.00)
[2025-09-07 07:40] VITALS: BP 112/76; PULSE 82; RESP 16; O2SAT 99
[2025-09-07 07:41] LABS: Albumin* 3.8 g/dL (3.3-5.0); Chloride* 106 mmol/L (96-114); Potassium* 4.6 mmol/L (3.6-5.1)
[2025-09-07 07:43] LABS: Alanine Aminotransferase* 20 U/L (4-35); Aspartate Amino Transferase* 23 U/L (12-35); Blood Urea Nitrogen* 18 mg/dL (5-24); Creatinine* 0.8 mg/dL (0.5-1.5); Est. Creatinine Clearance* 80.72; Estimated Glomerular Filt Rate 95 ml/min
[2025-09-07 07:44] LABS: Alkaline Phosphatase* 57 U/L (40-150); Bilirubin Total* 0.7 mg/dL (0.1-1.5); Calcium* 8.7 mg/dL (8.4-10.6); Carbon Dioxide* 23 mmol/L (20-32); Glucose* 111 mg/dL (60-115); Total Protein* 6.5 g/dL (6.0-8.3)
[2025-09-07 07:47] LABS: Slide Review Reflex No
[2025-09-07 07:49] LABS: Anion Gap 9 mEq/L (7-15); Sodium* 138 mmol/L (135-149)
[2025-09-07] MEDS: FAMOTIDINE 20 MG TABLET PO (08:29)
[2025-09-07] MEDS: OMEPRAZOLE 20 MG CAPSULE DR PO (08:29)
== END 2025-09-07 08:27 | disposition home or self-care (01) ==
PROVIDERS: Emergency Provider Family Medicine; PCP Family Medicine
DX: R10.13 Epigastric pain (principal); R11.0 Nausea
CPT/HCPCS: 36415; 74177; 80053; 83605; 83690; 85025; 86140; 96374; 96375; 99284; 99285; A9270; J1885; J2405; Q9967

== ENCOUNTER 2025-09-26 10:35 | Outpatient (CLI) | payer BC, SELFPAY | END 2025-09-26 10:36 | disposition home or self-care (01) | LOC: NFLDREF 09-29 08:51 | PROVIDERS: PCP Family Medicine; Referring Provider Family Medicine; Visit Provider Family Medicine | DX: R10.9 Unspecified abdominal pain (principal) | CPT/HCPCS: 80076; 83690 ==

== ENCOUNTER 2025-09-27 09:05 | Emergency (ER) | payer BC, SELFPAY ==
[2025-09-27 09:10] VITALS: BP 121/84; PULSE 102; RESP 18; TEMP 36.9; O2SAT 96; BMI 37.8
--- NOTE | 2025-09-27 10:14 | ED_ITS ---
HPI - Abdominal Pain General Chief Complaint: Abdominal Pain Stated Complaint: Abdominal pain Time Seen by Provider: 09/27/25 09:08 History of Present Illness HPI narrative: This 40-year-old female comes in with upper epigastric abdominal pain. She is been having pains like this over the past few weeks or longer. She did have a CT scan and lab results a couple weeks ago here in the emergency department. This showed negative results. Prior to this she did have some elevated lipase but at that time it was checked she was not having any symptoms. There was some suspicion of pancreatitis at that time. She has had her gallbladder removed. She is not using alcohol. She has been taking omeprazole for the past couple weeks but not getting any significant relief. She reports upper epigastric pain and has some intense cramping that occurs. She states that she has been having regular bowel movements but does feel like she gets bloated at times and did not have a bowel movement yesterday. She arrives here with normal vital signs. She did have an appointment yesterday in the clinic and had labs done and these returned with normal results. This included normal lipase and liver enzymes. Related Data Home Medications ?Medication ?Instructions ?Recorded ?Confirmed copper 380 square mm intrauterine 1 device intrauterin e ONCE 02/02/25 09/13/25 device (ParaGard T 380A) Previous Rx's ?Medication ?Instructions ?Recorded levothyroxine 25 mcg tablet 25 mcg PO QDAY #90 tabs valsartan 320 mg tablet 320 mg PO QDAY #90 tabs 04/10 06/03 omeprazole 20 mg capsule,delayed 20 mg PO DAILY #90 ca ps 09/07/25 release phentermine 30 mg capsule 30 mg PO QDAY #30 caps 09/13 hydrocodone 5 mg-acetaminophen 325 1 tab PO Q4-6H PRN pain #10 tabs 09/27/25 mg tablet ketorolac 10 mg tablet 10 mg PO TID 5 days #15 tabs 09/27/25 Allergies Allergy/AdvReac Type Severity Reaction Status Date / Time No Known Drug Allergies Allergy Verified 09/13/25 14:59 Review of Systems Status of ROS Reports: 10 or more systems reviewed and unremarkable except as noted in History and below Narrative Constitutional: No fevers, no weight gain or loss. Eyes: No discharge. No vision changes. HENT: No congestion, no sore throat, no ear pain. Cardiovascular: No chest pain, no palpitations. Respiratory: No shortness of breath, no wheezes, no cough. Gastrointestinal: No vomiting, no diarrhea. Abdominal pain as described above. Genitourinary: No dysuria, no hematuria. Musculoskeletal: Normal range of motion. Skin: No rashes, no pruritis. Neurological: No dizziness, weakness, sensory change, speech change. Endo/Heme/Allergies: No bruising or bleeding. No polydipsia. Pysch: no suicidality, no anxiety, no insomnia. All other systems reviewed and are negative. 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 No children Current smoker 1 pack every 2 days, has smoked 25 years What is your current living situation?: I presently have a place to live In the past 12 months, utilities in danger of being shut off: no In past 12 months, lack of transportation kept you from medical appts, meetings, work, or getting things needed for daily living: no In the past 12 mos, have been you worried that your food would run out before you had money to buy more?: never true In the past 12 mos, the food you bought just didn't last and you didn't have money to buy more?: never true Smoking Status: Current every day smoker What tobacco products do you use: cigarettes Years smoked: 23 Do you use any of these nicotine containing products: None How often do you have a drink containing alcohol: 2-4 times a month Alcohol type: beer How many standard drinks containing alcohol do you have on a typical day: 1 or 2 How often do you have six or more drinks on one occasion: Never AUDIT-C Alcohol total score: 2 Non-prescribed substance use details: quit drinking on 08/20/25 Caffeine: Yes How often does anyone, including family, friends and others, physically hurt you : never How often does anyone, including family, friends and others, insult or talk down to you: never How often does anyone, including family, friends and others, threaten you with harm: never How often does anyone, including family, friends and others, scream or curse at you: never Are you using contraception or practicing any form of control: No service: No Exam Narrative: Exam Narrative: Constitutional: Well-developed, well-nourished, no acute distress. HEENT: Normocephalic, atraumatic. Neck: Normal range of motion. Nontender. Supple. Heart: Regular. No murmurs. Normal rate. Intact distal pulses. Lungs: Clear to auscultation. No chest discomfort. No wheezes, rhonchi, or rales. Abdomen: Normal bowel sounds. Pain in the upper epigastric region. No rebound tenderness. Genitalia: Deferred. Back: No midline tenderness. Normal range of motion. Extremities: Normal range of motion. No injury. Skin: Intact. No rash. Warm. No erythema or pallor. Neurologic: No altered sensation. No weakness. Alert and oriented. Psychiatric: No suicidality. No anxiety or depression. No insomnia. Nursing notes and vitals signs are reviewed. Const: Vital Signs, click to edit/add: Vital Signs - 24 hr 09/27/25 09:10 Temperature 98.5 F Pulse Rate [Pulse Oximeter] 102 H Respiratory Rate 18 Blood Pressure [Ri ght Upper Arm] 121/84 Pulse Oximetry 96 Oxygen Delivery Me thod Room Air Course Vital Signs Vital signs: Initial Vital Signs Temperature 98.5 F 09/27/25 09:10 Temperature Source Temporal Artery Scan 09/27/25 09:10 Pulse Rate 102 H 09/27/25 09:10 Respiratory Rate 18 09/27/25 09:10 Blood Pressure 121/84 09/27/25 09:10 Blood Pressure Mean 96 09/27/25 09:10 Blood Pressure Position Sitting 09/27/25 09:10 Pulse Oximetry 96 09/27/25 09:10 Oxygen Delivery Method Room Air 09/27/25 09:10 Vital Signs Temperature 98.5 F 09/27/25 09:10 Pulse Rate 102 H 09/27/25 09:10 Respiratory Rate 18 09/27/25 09:10 Blood Pressure 121/84 09/27/25 09:10 Pulse Oximetry 96 09/27/25 09:10 Oxygen Delivery Method Room Air 09/27/25 09:10 Temperature 98.5 F 09/27/25 09:10 Pulse Rate 102 H 09/27/25 09:10 Respiratory Rate 18 09/27/25 09:10 Blood Pressure 121/84 09/27/25 09:10 Pulse Oximetry 96 09/27/25 09:10 Oxygen Delivery Method Room Air 09/27/25 09:10 Medications Administered Medications: Discontinued Medications Generic Name Dose Route Start Last Admin Trade Name Freq PRN Reason Stop Dose Admin Lidocaine/Aluminum/Magnesium/Simeth 30 ml 09/27/25 10:08 09/27/25 10:18 Gi Cocktail (Visc Lido/Antacid) 30 Ml PO 09/27/25 10:09 30 ml ONCE ONE Administration MDM - Abdominal Pain MDM Narrative Medical decision making narrative: This patient comes in with upper epigastric abdominal pain as described above. She has had a rather thorough workup in the more recent past and also had labs again done yesterday with normal results. I did discuss repeating lab and imaging studies today and in a process of shared decision-making she declined this for now. She did receive a GI cocktail which brought relief to her symptoms. I did recommend endoscopy which she states that she would like to have done. I did place an order for upper GI study and connected with the corporate scheduler in this regard. She will receive a phone call for this to occur. The patient is taking Prilosec 40 mg daily. I did provide prescriptions for Toradol and some tablets of [place]. She understands that Toradol can have some adverse effect with symptoms of a gastritis however there is some protection being on omeprazole. She does have intense spikes of crampy pain and states that she has not been sleeping well with her discomfort. She can use these medicines sparingly but has needed. Discharge Plan Discharge Clinical Impression: Abdominal pain Patient Disposition: Home, Self-Care Condition: Improved Additional Instructions: Take medications as needed and directed. A corporate scheduler from the upper GI clinic will give a phone call to arrange for endoscopy. Return if worsening symptoms occur. Prescriptions: New hydrocodone-acetaminophen 5-325 mg tablet 1 tab PO Q4-6H PRN (Reason: pain) Qty: 10 0RF ketorolac 10 mg tablet 10 mg PO TID 5 Days Qty: 15 0RF No Action phentermine 30 mg capsule 30 mg PO QDAY Qty: 30 2RF Rx Instructions: must administer 2 hours after breakfast ParaGard T 380A 380 square mm intrauterine device 1 device intrauterine ONCE Rx Instructions: as a single dose omeprazole 20 mg capsule,delayed release(DR/EC) 20 mg PO DAILY Qty: 90 1RF levothyroxine 25 mcg tablet 25 mcg PO QDAY Qty: 90 2RF valsartan 320 mg tablet 320 mg PO QDAY Qty: 90 2RF Follow Up/Referrals: Donald Smith MD [Primary Care Provider, Family Practice] Stand Alone Forms: [employer] Info Instructions
[2025-09-27] MEDS: GI COCKTAIL (VISC LIDO/ANTACID) 30 ML PO (10:18)
== END 2025-09-27 11:14 | disposition home or self-care (01) ==
PROVIDERS: Emergency Provider Emergency Medicine Emergency Medical Services; PCP Family Medicine
DX: R10.13 Epigastric pain (principal); Z90.49 Acquired absence of other specified parts of digestive tract
CPT/HCPCS: 99283; 99284; A9270

== ENCOUNTER 2025-10-03 06:25 | Outpatient (CLI) | payer BC, SELFPAY ==
--- NOTE | 2025-10-03 08:25 | P.ANES_ITS ---
Anesthesia Charges Start Date/Time Anesthesia Start Date: 10/03/25 Anesthesia Start Time: 07:30 Stop Date/Time Anesthesia Stop Date: 10/03/25 Anesthesia Stop Time: 08:15 Coding CPT Codes CPT Codes: ANES UPR LWR GI NDSC PX - 88563 ([id number]) P2 - PATIENT W/MILD SYST DISEASE, QK - PAPER FEEDER 2-4 CNCRNT ANES PROC, QX - SUPERVISOR STEEL DIVISION SVC W/ MD MED DIRECTION
--- NOTE | 2025-10-03 08:25 | W.ANESCHARGE ---
Anesthesia Charges Start Date/Time Anesthesia Start Date: 10/03/25 Anesthesia Start Time: 07:30 Stop Date/Time Anesthesia Stop Date: 10/03/25 Anesthesia Stop Time: 08:15 Coding CPT Codes CPT Codes: ANES UPR LWR GI NDSC PX - 79604 ([id number]) P2 - PATIENT W/MILD SYST DISEASE, QK - WAREHOUSE INCENTIVE SELECTOR 2-4 CNCRNT ANES PROC, QX - OVEN STRIPPER SVC W/ MD MED DIRECTION
--- NOTE | 2025-10-03 10:05 | W.ANESCHARGE ---
Anesthesia Charges Start Date/Time Anesthesia Start Date: 10/03/25 Anesthesia Start Time: 07:30 Stop Date/Time Anesthesia Stop Date: 10/03/25 Anesthesia Stop Time: 08:15 Coding CPT Codes CPT Codes: ANES UPR LWR GI NDSC PX - 87306 ([id number]) QK - DIRECTOR OF EDUCATION 2-4 CNCRNT ANES PROC, QX - TUFTER OPERATOR SVC W/ MD MED DIRECTION, P2 - PATIENT W/MILD SYST DISEASE
--- NOTE | 2025-10-03 10:05 | P.ANES_ITS ---
Anesthesia Charges Start Date/Time Anesthesia Start Date: 10/03/25 Anesthesia Start Time: 07:30 Stop Date/Time Anesthesia Stop Date: 10/03/25 Anesthesia Stop Time: 08:15 Coding CPT Codes CPT Codes: ANES UPR LWR GI NDSC PX - 56771 ([id number]) QK - FURNITURE MOVER HELPER 2-4 CNCRNT ANES PROC, QX - COMPUTER SYSTEMS SOFTWARE ARCHITECT SVC W/ MD MED DIRECTION, P2 - PATIENT W/MILD SYST DISEASE
== END 2025-10-03 06:26 | disposition home or self-care (01) ==
PROVIDERS: PCP Family Medicine; Visit Provider Surgery
DX: R10.84 Generalized abdominal pain (principal); D12.0 Benign neoplasm of cecum; D12.3 Benign neoplasm of transverse colon; D12.8 Benign neoplasm of rectum; R10.13 Epigastric pain; K22.89 Other specified disease of esophagus
CPT/HCPCS: 00813; 43239; 45385; J2371; J2704; J3490